=== PATIENT | female | born 1985 | race Caucasian/White ===

== ENCOUNTER 2017-09-28 14:02 | Emergency (ER) | payer MEDICAID, SELFPAY ==
[2017-09-28 14:02] VITALS: BP 159/41; PULSE 84; RESP 16; TEMP 36.9; O2SAT 99; BMI 17.2
--- NOTE | 2017-09-28 14:53 | ED.VISSUMM ---
- ER Visit Summary Date of Service: 09/28/17 Chief Complaint: Cough History of Present Illness: The patient is a 32 F no significant past medical history. Patient states she has had a cough nonproductive for the last 4 months. Denies any fever. No weight loss. She does smoke less than half pack cigarettes a day. Denies any hemoptysis. Physical Examination: Well-appearing young female. Vital signs are stable afebrile. Pulse ox 99% on room air no signs of hypoxia. HEENT exam unremarkable. Neck nontender no lymphadenopathy. Lungs dry cough but no rales rhonchi or wheezing. Equal and symmetrical. Heart regular rate and rhythm no murmur. Chest wall nontender. No ecchymosis or bruising. No subcu air. Abdomen is soft and nontender. Moving all 4 extremities. Neurologically awake alert with no focal motor deficits. Test Results: Chest x-ray changes no acute process. No infiltrate. Changes consistent with smoking history. Emergency Department Course and Treatment: Discharge to home. [id number] cough syrup. Treatment Plan: Smoking. If coughing continues consider testing for pertussis. Disposition: Discharge Impression: Chronic cough Tobacco abuse This note was generated with [employer] dictation software. It may contain incorrect words, spelling, and punctuation that were not noted in review of the chart prior to signing ED Disposition - Plan for ED Patient: Chief Complaint: Cough Referrals: Care Physician,No Primary [Primary Care Provider] -
[2017-09-28 14:58] VITALS: O2SAT 97
--- NOTE | 2017-09-28 15:00 | RAD_ITS ---
STUDY: X-RAY CHEST REASON FOR EXAM: Female, 32 years old. One-month history of cough. TECHNIQUE: PA and lateral views of the chest. COMPARISON: Comparison is made with prior study dated July 22, 2016. FINDINGS: Hyperinflation. Scattered calcified granulomas. No acute abnormality is seen. There is no demonstrated pleural abnormality. Normal size heart. Normal mediastinum and yefri. Normal visualized pulmonary arteries. Normal visualized aortic arch and descending thoracic aorta. Normal visualized thoracic spine. Normal visualized ribs, clavicles, and shoulders. There is no demonstrated abnormality of the visualized soft tissue structures of the upper abdomen. RAD/Chest PA and Lateral IMPRESSION: Hyperinflation. Electronically Signed: Gavin Osullivan MD at 15:16 EST Tel [phone], Service support ,
--- NOTE | 2017-09-28 15:12 | ED.DEP ---
ED Disposition - Plan for ED Patient: Disposition: Home or Assisted Living Chief Complaint: Cough Instructions: ED Cough Chronic Cause Unkn Referrals: Amos Collado MD [STAFF PHYSICIAN] - 1 Week if not improving Additional Instructions: Stop smoking Follow-up with the primary care physician. Over the counter cough syrup.
[2017-09-28 15:29] VITALS: PULSE 85; RESP 16; O2SAT 97
== END 2017-09-28 15:29 | disposition home or self-care (01) ==
PROVIDERS: Emergency Provider Emergency Medicine
DX: R05 Cough (principal); Z72.0 Tobacco use
CPT/HCPCS: 71046; 99282

== ENCOUNTER → 2017-09-29 13:22 | Outpatient (CLI) | payer MEDICAID, SELFPAY ==
[2017-10-07 13:55] LABS: HPV APTIMA, High Risk Negative
== END ==
PROVIDERS: Visit Provider Obstetrics & Gynecology
DX: Z12.4 Encounter for screening for malignant neoplasm of cervix (principal)
CPT/HCPCS: 88175; G0145

== ENCOUNTER 2018-03-03 03:31 | Emergency (ER) | payer MEDICAID, SELFPAY ==
[2018-03-03 03:32] VITALS: BP 108/86; PULSE 84; RESP 18; TEMP 36.8; O2SAT 98; BMI 15.5
[2018-03-03] MEDS: morphine 8 MG/ML Syringe IM (03:59)
--- NOTE | 2018-03-03 04:10 | RAD_ITS ---
STUDY: X-RAY - RIGHT HAND REASON FOR EXAM: Female, 33 years old. Injury TECHNIQUE: 3 view(s) of the hand. COMPARISON: None. FINDINGS: Normal radiocarpal articulation. Normal distal radioulnar joint. Normal visualized carpal bones. Normal carpal articulations Normal carpometacarpal articulation of the thumb. Normal second through fifth carpometacarpal joints. Normal metacarpi. Normal metacarpophalangeal joint of the thumb. Normal interphalangeal joint of the thumb. Normal proximal and distal phalanges of the thumb. Normal metacarpophalangeal joints of the second through fifth fingers. Normal proximal and distal interphalangeal joints of the second through fifth fingers. Normal phalanges of the second through fifth fingers. The soft tissue structures are unremarkable. RAD/Hand Min 3 Views IMPRESSION: Normal x-ray examination of the hand. Electronically Signed: Danny Rodriguez MD at 4:31 EDT Tel , Service support ,
[2018-03-03 04:44] VITALS: RESP 18
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
== END 2018-03-03 05:26 | disposition home or self-care (01) ==
PROVIDERS: Emergency Provider Emergency Medicine
DX: S60.221A Contusion of right hand, initial encounter (principal); W22.01XA Walked into wall, initial encounter; Y93.9 Activity, unspecified; Y92.89 Other specified places as the place of occurrence of the external cause; Y99.9 Unspecified external cause status; J45.909 Unspecified asthma, uncomplicated; F17.210 Nicotine dependence, cigarettes, uncomplicated
CPT/HCPCS: 73130; 96372; 99283

== ENCOUNTER 2019-05-14 01:24 | Emergency (ER) | payer BC, SELFPAY ==
[2019-05-14 01:24] VITALS: BMI 17.2
[2019-05-14 01:28] VITALS: BP 124/94; PULSE 94; RESP 16; TEMP 36.9; O2SAT 97; BMI 16.2
--- NOTE | 2019-05-14 02:02 | ED.VIS.GEN ---
History of Present Illness Chief Complaint: Back Informant: Patient Current Severity: Severe Narrative: Patient presents with severe back pain that started about 7 hours ago. She has had chronic back pain but she bent down at work and then developed a sharp pain in her lower back. She does have some radiation to her right leg. She has no bowel or bladder compromise. She denies any abdominal pain. No urinary retention. She denies any weakness or paresthesias. Past Medical History - Allergies and Home Meds Allergies/Adverse Reactions: Allergies Penicillins Allergy (Verified 03/03/18 03:36) Other Primary Care Physician: Care Physician,No Primary [Primary Care Provider] - Past Medical History: - Smoking Status: Current every day smoker Review of Systems All systems negative except as indicated General: Denies: Fever Cardiovascular: Denies: Chest pain Respiratory: Denies: Dyspnea Gastrointestinal: Denies: Abdominal pain Musculoskeletal: Reports: Back pain. Denies: Neck pain Skin: Denies: Wounds Neurological: Denies: Weakness, Parasthesia Physical Exam Vital Signs/Narrative: Vital Signs Temp Pulse Resp BP Pulse Ox 05/14/19 01:28 98.4 F 94 16 124/94 H 97 General: Acute Distress ENT: Moist mucous membranes Cardiovascular: Regular rate, Regular rhythm Respiratory: No distress, CTA bilaterally Abdomen: Soft, Nontender Back: - - There is tenderness over the spinal and paraspinal regions of her lower back. Extremities: No edema, Tenderness Neurological: - - Patient has normal strength and sensation of both lower extremities. She has a positive straight leg test on the right. She has normal plantarflexion and dorsiflexion of both feet and great toes bilaterally. She has equal bilateral patellar and Achilles reflexes. Diagnostic/Tx/Re-eval - Medical Decision Making Patient has sciatica. She received analgesia in the emergency department I will give her analgesia for home and referred to her PCP. Will give her time off work. If she has bowel bladder compromise weakness or sensory deficit she needs to return. ED Disposition - Plan for ED Patient: Disposition: Home or Assisted Living Prescriptions: Oxycodone HCl/Acetaminophen [Percocet 5/325] 1 tab PO Q6H PRN PRN 3 Days #12 tab PRN Reason: Pain Prescription Printed Referrals: Aníbal Torres MD [STAFF PHYSICIAN] - 3-5 Days
[2019-05-14] MEDS: Ondansetron ODT 4 MG Tablet PO (02:18)
[2019-05-14] MEDS: HYDROmorphone 1 MG/ML Syringe SC (02:18)
[2019-05-14 02:23] VITALS: BP 121/82; PULSE 94; O2SAT 98
== END 2019-05-14 02:46 | disposition home or self-care (01) ==
PROVIDERS: Emergency Provider Emergency Medicine
DX: M54.30 Sciatica, unspecified side (principal); F17.200 Nicotine dependence, unspecified, uncomplicated; Z88.0 Allergy status to penicillin; G89.29 Other chronic pain; M54.9 Dorsalgia, unspecified
CPT/HCPCS: 99283

== ENCOUNTER 2019-07-31 18:54 | Emergency (ER) | payer BC, SELFPAY ==
[2019-07-31 18:55] VITALS: BP 113/86; PULSE 98; RESP 15; TEMP 36.6; O2SAT 100; BMI 18.0
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
[2019-07-31] MEDS: Ibuprofen 200 MG Tablet 400 MG PO (20:19)
[2019-07-31] MEDS: HYDROcodone Bitartrate/Apap 5/325 Tablet PO (20:19)
== END 2019-07-31 21:09 | disposition home or self-care (01) ==
PROVIDERS: Emergency Provider Emergency Medicine
DX: S50.11XA Contusion of right forearm, initial encounter (principal); Y04.2XXA Assault by strike against or bumped into by another person, initial encounter; Y93.9 Activity, unspecified; Y92.9 Unspecified place or not applicable; Y99.9 Unspecified external cause status; J45.909 Unspecified asthma, uncomplicated; F17.200 Nicotine dependence, unspecified, uncomplicated; Z88.0 Allergy status to penicillin
CPT/HCPCS: 73060; 73090; 73130; 99283

== ENCOUNTER 2019-09-09 16:19 | Emergency (ER) | payer BC, SELFPAY ==
[2019-09-09 16:20] VITALS: BP 110/82; PULSE 113; RESP 16; TEMP 36; O2SAT 99; BMI 16.8
--- NOTE | 2019-09-09 16:34 | ED.VISSUMM ---
- ER Visit Summary Date of Service: 09/09/19 Chief Complaint: Quadrant abdominal pain. History of Present Illness: The patient is a 34 F past medical history depression and prior ovarian cyst. Prior cholecystectomy. Still has her gallbladder. Patient states for the last 4 days she is developed right lower quadrant abdominal pain. Associated nausea vomiting and diarrhea. No fever. No dysuria. She just started having spotting vaginal bleeding 2 days ago. Says that either means her period is coming on or she sometimes spots a week before. Denies any vaginal discharge. She still has her appendix. States she has had pain like this before but they never come up with a specific diagnosis. Physical Examination: Young female no acute distress vital signs are stable and afebrile. H EENT exam normal. Neck nontender. Lungs clear to auscultation bilaterally. Heart regular rhythm no murmur. Abdomen is soft. Nondistended. Normal bowel sounds. No peritoneal signs. She does have mild tenderness in the right lower quadrant only. There is no hernia or mass. There is no right upper quadrant tenderness. There is no Kirby sign. There is no signs of obstruction. She is moving all 4 extremities. There is no edema. Back is nontender. There is no CVA tenderness. Neurologically she is awake and alert. Test Results: White count 7. Hemoglobin 15. Electrolytes unremarkable normal creatinine gap. UA normal. Serum test negative. CT abdomen pelvis done without contrast initially ordered with IV contrast but the IV they were able obtain was too small. The CAT scan shows a normal appendix a right adnexal cyst of 3.2 cm. And otherwise unremarkable. This is consistent with her pain and is consistent with ovarian cyst pain. Emergency Department Course and Treatment: Patient treated with IV morphine, fluids and Zofran. Labs and a CAT scan of her abdomen pelvis to be obtained with IV contrast. Treatment Plan: Repeat exam she is doing well at 1907 p.m. Abdomen is benign. She and I discussed all test results. She will be discharged home. Tylenol and Motrin for pain. 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 Disposition: Discharge Impression: Acute abdominal pain and pelvic pain secondary to a 3.2 cm right ovarian cyst This note was generated with [employer] software. It may contain incorrect words, spelling, and punctuation that were not noted in review of the chart prior to signing ED Disposition - Plan for ED Patient: Referrals: Care Physician,No Primary [Primary Care Provider] -
[2019-09-09] MEDS: Ondansetron 4 MG/2 ML Vial IV (17:04)
[2019-09-09] MEDS: 0.9% Normal Saline 1,000 ML 1000 ML IV (17:04)
[2019-09-09] MEDS: Morphine 4 MG/ML Syringe IV (17:04)
[2019-09-09 17:16] LABS: Absolute Lymphocyte Count 1.47 X10^3/uL (0.83-4.51); Absolute Neutrophil Count 4.9 X10^3/uL (2.0-7.7); Basophil# 0.05 X10^3/uL; Basophil% 0.7 % (0-1); Eosinophil# 0.26 X10^3/uL; Eosinophils% 3.7 % (0-5); Hematocrit 45.3 % (37-47); Hemoglobin 15.8 g/dL (12.0-15.0); Lymphocyte # 1.47 X10^3/ul (4.0); Lymphocyte % 20.8 % (19-41); Mean Corp Hgb Conc 34.9 g/dL (32-36); Mean Corpuscular Hgb 31.6 pg (27.0-32.0); Mean Corpuscular Volume 90.6 fL (81-99); Mean Platelet Vol. 9.3 fl (6.2-12.0); Monocyte# 0.36 X10^3/uL; Monocyte% 5.1 % (0-10); NRBC Flagged by Analyzer 0 % (0-5); Neutrophil # 4.91 X10^3/uL (2.7-7.7); Neutrophil % 69.6 % (47-70); Platelet Count 285 K/mm3 (150-450); RBC Distribution Width SD 39.3 fl (35.1-43.9); White Blood Count 7.1 K/mm3 (4.4-11.0)
[2019-09-09 17:23] LABS: Bacteria 0 SEEN /hpf (None Seen); Mucous, Urine 0 SEEN /hpf (<or=2+); Red Blood Cells-Urine 0 SEEN /hpf (0-5); White Blood Cells 0 SEEN /hpf (0-5)
[2019-09-09 17:29] LABS: Color, Urine Yellow (Yellow); Glucose, Dipstick Normal (Normal); Ketone-Dipstick Negative (Negative); Leukocyte Esterase-Dipstick Negative /ul (Negative); Nitrite-Dipstick Negative (Negative); Occult Blood-Urine Negative /ul (Negative); Protein-Dipstick Negative (Negative); Urine Bilirubin Dipstick Negative (Negative); Urine Clarity Sl. Cloudy (Clear); Urine Urobilinogen Normal (Normal)
[2019-09-09 17:30] LABS: Internal QC Validated? YES +Cl - CLEAR BKGD; Pregnancy, Serum, hCG Quali. NEGATIVE Negative
--- NOTE | 2019-09-09 17:31 | CT_ITS ---
STUDY: CT ABDOMEN AND PELVIS WITHOUT CONTRAST REASON FOR EXAM: Female, 34 years old. N/V/D, IUD AND CHOLECYSTECTOMY RADIATION DOSAGE (If Supplied By Facility): CTDIvol = ( 6.04 ) mGy, DLP = ( 271.80 ) mGycm TECHNIQUE: Transaxial images were obtained from the dome of the diaphragm to the symphysis pubis without oral contrast, and without intravenous contrast. Sagittal and coronal images were reconstructed. Individualized dose optimization techniques were used for this CT. COMPARISON: None. FINDINGS: The visualized lung bases are unremarkable. The visualized portions of the heart are within normal limits. Normal liver. There are surgical clips in the gallbladder fossa consistent with a prior cholecystectomy. Normal spleen. Normal pancreas. Normal bilateral adrenal glands. Normal right kidney. Normal left kidney. Normal visualized stomach. Normal small intestine. Normal colon. The appendix is visualized and appears normal. Normal abdominal aorta. Normal inferior vena cava. Normal retroperitoneum. Normal urinary bladder. There is IUD in the uterus. There is 3.2 cm right adnexal cyst. There is no free fluid in the abdomen or pelvis. Normal abdominal wall. Normal osseous structures. CT/Abdomen/Pelvis without Cont IMPRESSION: Right adnexal cyst. No obstruction. No stones or hydronephrosis. Electronically Signed: Mynor Correa MD at 18:00 EST , Service support ,
[2019-09-09 17:35] LABS: Anion Gap 3 (5-15); BUN 11 mg/dL (7-18); BUN/Creat Ratio 16.2 RATIO (10-20); Chloride 110 mmol/L (98-107); Creatinine, Serum 0.68 mg/dL (0.55-1.02); EST Glomerular Filtration Rate 104 mL/min (>60); Est Glom Filt Rate - Afr Amer 126 mL/min (>60); Estimated Creatinine Clearance 81.03 ml/min; Glucose 98 mg/dL (74-106); Potassium 3.9 mmol/L (3.5-5.1); Sodium Level 141 mmol/L (136-145)
[2019-09-09 17:50] LABS: Squamous Epithelial Cells - UA 5-10 SEEN /hpf (5-10)
[2019-09-09 18:47] VITALS: BP 94/61; PULSE 69; RESP 16; O2SAT 97
--- NOTE | 2019-09-09 19:08 | ED.DEP ---
ED Disposition - Plan for ED Patient: Disposition: Home or Assisted Living Referrals: Karson Olivo MD [STAFF PHYSICIAN] - 10-14 Days if not better Additional Instructions: Pain secondary to a 3.2 mm right ovarian cyst. 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 Tylenol and Motrin for pain.
[2019-09-09 19:16] VITALS: BP 104/61; PULSE 74; RESP 18; O2SAT 99
== END 2019-09-09 19:17 | disposition home or self-care (01) ==
PROVIDERS: Emergency Provider Emergency Medicine
DX: N83.201 Unspecified ovarian cyst, right side (principal); N93.9 Abnormal uterine and vaginal bleeding, unspecified; F32.9 Major depressive disorder, single episode, unspecified; Z90.49 Acquired absence of other specified parts of digestive tract; Z72.0 Tobacco use
CPT/HCPCS: 36415; 74176; 80048; 81001; 84703; 85025; 96361; 96374; 96375; 99285; J7030; A4216; J2405

== ENCOUNTER 2019-11-06 17:53 | Emergency (ER) | payer BC, SELFPAY ==
[2019-11-06 17:54] VITALS: BP 114/75; PULSE 94; RESP 20; TEMP 36.6; O2SAT 97; BMI 17.5
--- NOTE | 2019-11-06 18:22 | ED.DCSUM_ITS ---
- ER Visit Summary Date of Service: 11/06/19 Chief Complaint: Cough and shortness of breath History of Present Illness: The patient is a 34 F who presents with cough and shortness of breath for 3 days. Patient is a smoker. Patient states this is gradually gotten worse over the past 3 days. Patient states nothing makes it better or worse. Patient admits to a sore throat. Patient admits to a cough but denies any sputum production. Patient admits to subjective chills. Patient states she has pain in her right upper chest that is sharp at times. Patient admits to headache and generalized weakness. Patient admits to some nausea but denies any vomiting. Physical Examination: Vital signs are stable. Patient is afebrile. Patient is in no acute distress. Oral mucosa is pink and moist. Oropharynx shows some postnasal drainage. Neck is supple. Trachea is midline. There is no JVD or lymphadenopathy. Heart was regular rate and rhythm. Lungs are clear and equal bilaterally. Abdomen is soft. Bowel sounds are normal. There is no tenderness. Cranial nerves II through XII are intact. There are no focal motor or sensory deficits noted. Extremities are intact. There is no calf tenderness or edema. Test Results: PA and lateral chest x-ray shows hyperinflation but no acute cardiopulmonary process. This was interpreted by the radiologist and myself. Flu swab was negative. Rapid strep was negative. Emergency Department Course and Treatment: Patient was feeling better on reevaluation. Patient was instructed to follow-up with her primary care physician in 5 to 7 days. Patient was given a note for work. Patient was instructed to quarantine herself for the next 2 weeks. Patient understood and was agreeable with the plan. All questions were answered. Disposition: Discharge home Impression: Viral upper respiratory infection This note was generated with [employer] dictation software. It may contain incorrect words, spelling, and punctuation that were not noted in review of the chart prior to signing ED Disposition - Plan for ED Patient: Disposition: Home or Assisted Living Diagnosis: Viral upper respiratory tract infection with cough Instructions: URI, Viral, No Abx (Adult) Referrals: Care Physician,No Primary [Primary Care Provider] - 5-7 Days
[2019-11-06] MEDS: Acetaminophen 500 MG Tablet 1000 MG PO (18:30)
--- NOTE | 2019-11-06 18:40 | RAD_ITS ---
STUDY: X-RAY CHEST REASON FOR EXAM: Female, 34 years old. Shortness of breath, dizziness TECHNIQUE: PA and lateral views of the chest. COMPARISON: 09/28/2017. FINDINGS: Cardiac silhouette unremarkable. Pulmonary vascularity unremarkable. Aorta unremarkable. No focal airspace opacities. No pleural effusions. Lungs are mildly hyperinflated. Upper abdomen unremarkable. Osseous structures intact. No pneumothorax. RAD/Chest PA and Lateral IMPRESSION: Hyperinflated lungs. No acute cardiopulmonary findings Electronically Signed: Miguel Noguera, at 19:20 EDT Tel , Service support ,
[2019-11-06 18:55] VITALS: BP 98/72; PULSE 62; RESP 20; TEMP 37.1; O2SAT 98
[2019-11-06 20:00] VITALS: BP 91/76; PULSE 64; RESP 18; TEMP 37.1; O2SAT 98
[2019-11-06 21:08] VITALS: BP 135/60; PULSE 83; RESP 17; TEMP 37; O2SAT 95
== END 2019-11-06 21:10 | disposition home or self-care (01) ==
PROVIDERS: Emergency Provider Emergency Medicine
DX: J06.9 Acute upper respiratory infection, unspecified (principal); F17.210 Nicotine dependence, cigarettes, uncomplicated; F32.9 Major depressive disorder, single episode, unspecified; F41.9 Anxiety disorder, unspecified
CPT/HCPCS: 71046; 87804; 87880; 99282

== ENCOUNTER 2020-01-22 15:09 | Emergency (ER) | payer BC, SELFPAY ==
[2020-01-22 15:10] VITALS: BP 134/68; PULSE 75; RESP 16; TEMP 36.3; O2SAT 97; BMI 17.2
[2020-01-22 15:21] VITALS: BP 108/72; PULSE 104; RESP 20; TEMP 36.3; O2SAT 96
[2020-01-22 15:25] VITALS: O2SAT 97
[2020-01-22 15:44] VITALS: BP 105/76; PULSE 87; RESP 16; TEMP 36.6; O2SAT 98
--- NOTE | 2020-01-22 16:27 | ED.DCSUM_ITS ---
- ER Visit Summary Date of Service: 01/22/20 Chief Complaint: Cough] History of Present Illness: The patient is a 34 F presents to the emergency department with complaint of a cough that started about a week to week and a half ago. Patient states that it is a dry cough. She has had another coworker at work has had a cough and was tested for COVID-19 but was negative. Patient has no known exposures to individuals with COVID-19. Patient has not had any fevers. She denies sore throat or body aches. She denies headache. She feels short of breath at times with ambulation. Has history of asthma. [] Physical Examination: [HEENT-PERRLA, EOMI. Cranial nerves II through XII al ssly intact. TMs clear. Mucous membranes moist. No adenopathy. Cardiovascular-regular rate and rhythm without murmur or ectopy Lungs-aeration bilaterally with some faint expiratory wheezes. No accessory muscle use or retractions. Abdomen-normoactive bowel sounds, soft, nontender, no rebound or rigidity, no peritoneal signs. Extremities-intact ?4, normal range of motion, normal pulses, atraumatic] Test Results: [CBC with differential was normal. Chemistries unremarkable. Chest x-ray was normal. COVID-19 test was negative.] Emergency Department Course and Treatment: [Patient was given albuterol MDI in the department as well as given prednisone 40 mg p.o.] Treatment Plan: [Patient will be treated with albuterol as well as prednisone. Patient will be referred to primary care physician for follow-up in 3 to 5 days. Patient advised to return if increasing shortness of breath or condition shoul d worsen anyway.] Disposition: [Discharged home in stable condition] Impression: [Asthmatic bronchitis/viral URI] This note was generated with [employer] software. It may contain incorrect words, spelling, and punctuation that were not noted in review of the chart prior to signing ED Disposition - Plan for ED Patient: Referrals: Care Physician,No Primary [Primary Care Provider] -
[2020-01-22 16:44] VITALS: BP 100/66; PULSE 73; RESP 19; TEMP 36.6; O2SAT 98
[2020-01-22] MEDS: 0.9% Normal Saline 1,000 ML 1000 ML IV (16:52)
--- NOTE | 2020-01-22 16:55 | RAD_ITS ---
STUDY: X-RAY CHEST REASON FOR EXAM: Female, 34 years old. NONPRODUCTIVE WET COUGH SINCE THE END OF November,. TECHNIQUE: Single AP portable view of the chest. COMPARISON: Previous study of 11/06/2019 FINDINGS: electronic device monitor leads are present. The lungs are clear and expanded. There is no demonstrated pleural abnormality. Normal size heart. Normal mediastinum and yefri. Normal visualized pulmonary arteries. Normal visualized aortic arch and descending thoracic aorta. Normal visualized thoracic spine. Normal visualized ribs, clavicles, and shoulders. There is no demonstrated abnormality of the visualized soft tissue structures of the upper abdomen. RAD/Chest 1 View (Portable) IMPRESSION: Normal x-ray examination of the chest. Electronically Signed: Adan John MD at 17:57 EDT , Service support ,
[2020-01-22 16:58] LABS: Absolute Lymphocyte Count 2.26 X10^3/uL (0.83-4.51); Absolute Neutrophil Count 4.2 X10^3/uL (2.0-7.7); Basophil# 0.04 X10^3/uL; Basophil% 0.5 % (0-1); Eosinophil# 0.42 X10^3/uL; Eosinophils% 5.8 % (0-5); Hematocrit 43.5 % (37-47); Hemoglobin 14.9 g/dL (12.0-15.0); Lymphocyte # 2.26 X10^3/ul (4.0); Mean Corp Hgb Conc 34.3 g/dL (32-36); Mean Corpuscular Hgb 30.5 pg (27.0-32.0); Mean Corpuscular Volume 89.1 fL (81-99); Mean Platelet Vol. 10.1 fl (6.2-12.0); Monocyte# 0.42 X10^3/uL; Monocyte% 5.8 % (0-10); NRBC Flagged by Analyzer 0 % (0-5); Neutrophil # 4.15 X10^3/uL (2.7-7.7); Neutrophil % 56.8 % (47-70); Platelet Count 297 K/mm3 (150-450); RBC Distribution Width CV 11.5 % (11.6-14.6); RBC Distribution Width SD 36.4 fl (35.1-43.9); Red Blood Count 4.88 M/mm3 (4.2-5.4); White Blood Count 7.3 K/mm3 (4.4-11.0)
[2020-01-22 17:00] VITALS: BP 98/57; PULSE 91; RESP 20; TEMP 36.4; O2SAT 100
[2020-01-22 17:09] LABS: Anion Gap 6 (5-15); BUN 14 mg/dL (7-18); BUN/Creat Ratio 16.8 RATIO (10-20); Calcium,Total 8.9 mg/dL (8.5-10.1); Chloride 105 mmol/L (98-107); Creatinine, Serum 0.83 mg/dL (0.55-1.02); EST Glomerular Filtration Rate 83 mL/min (>60); Est Glom Filt Rate - Afr Amer 100 mL/min (>60); Estimated Creatinine Clearance 67.74 ml/min; Glucose 96 mg/dL (74-106); Potassium 3.8 mmol/L (3.5-5.1); Sodium Level 140 mmol/L (136-145)
[2020-01-22] MEDS: Ketorolac 30 MG/ML Syringe IV (17:16)
[2020-01-22 17:24] LABS: Lactic Acid 1.6 mmol/L (0.4-1.9)
[2020-01-22 17:52] LABS: Probe Check PASS; Specimen Processing Control PASS
--- NOTE | 2020-01-22 18:02 | DCINST.ED_ITS ---
ED Disposition - Plan for ED Patient: Instructions: ED Bronchitis Asthmatic Prescriptions: Prednisone [Deltasone] 20 mg PO BID #10 tab Transmission Status: Pending to [id number] Referrals: Care Physician,No Primary [Primary Care Provider] - Maya Payton DO [STAFF PHYSICIAN] - 3-5 Days
[2020-01-22] MEDS: predniSONE 20 MG Tablet 40 MG PO (18:23)
[2020-01-22] MEDS: Gentamicin Sulfate 1 OPTH.BTL 2 DRP RIGHT EYE (18:23)
== END 2020-01-22 18:24 | disposition home or self-care (01) ==
LOC: ED 16:01
PROVIDERS: Emergency Provider Emergency Medicine
DX: J45.909 Unspecified asthma, uncomplicated (principal); J06.9 Acute upper respiratory infection, unspecified; Z72.0 Tobacco use
CPT/HCPCS: 71045; 80048; 83605; 85025; 87040; 87635; 94640; 96361; 96374; 99282; G2023; J7030; A4216; U0003

== ENCOUNTER 2020-08-29 17:08 | Emergency (ER) | payer SELFPAY ==
[2020-08-29 17:08] VITALS: BP 97/44; PULSE 117; RESP 18; TEMP 35.7; BMI 16.5
[2020-08-29 17:10] VITALS: BP 112/78; PULSE 76; RESP 15; TEMP 37.2; O2SAT 100
--- NOTE | 2020-08-29 17:55 | CT_ITS ---
STUDY: CT ABDOMEN AND PELVIS WITH CONTRAST REASON FOR EXAM: Female, 35 years old. Lower abdominal pain RADIATION DOSAGE (If Supplied By Facility): CTDIvol = ( 4 ) mGy, DLP = ( 208 ) mGycm TECHNIQUE: Transaxial images were obtained from the dome of the diaphragm to the symphysis pubis with oral contrast. 75 ml of ISOVUE-370 contrast was administered. Sagittal and coronal images were reconstructed. Individualized dose optimization techniques were used for this CT. COMPARISON: 09/09/19 FINDINGS: The visualized lung bases are clear. The visualized portions of the heart and pericardium are within normal limits. The patient is status post cholecystectomy. The liver is within normal limits. There are no suspicious hepatic lesions. The spleen is normal in size. The pancreas is within normal limits. The adrenal glands are within normal limits. There are no renal or ureteral stones. There is no hydronephrosis. There are no focal renal lesions. Normal visualized stomach. There is no bowel obstruction or inflammation. The appendix is visualized and appears normal. There is an intrauterine device noted. The aorta is normal in caliber. There is no abdominal or pelvic free air, free fluid, fluid collection or lymphadenopathy. There are no destructive osseous lesions. CT/Abdomen/Pelvis WITH Contrast IMPRESSION: No acute abdominal or pelvic pathology. Electronically Signed: Mohit Carbajal, at 20:09 EST Tel , Service support ,
[2020-08-29] MEDS: Morphine 4 MG/ML Syringe IV (18:06)
[2020-08-29] MEDS: Ondansetron 4 MG/2 ML Vial IV (18:06)
[2020-08-29] MEDS: 0.9% Normal Saline 1,000 ML 1000 ML IV (18:08)
[2020-08-29 18:10] VITALS: BP 124/47; PULSE 79; RESP 18; TEMP 37.1; O2SAT 98
[2020-08-29 18:10] LABS: Absolute Lymphocyte Count 2.15 X10^3/uL (0.83-4.51); Absolute Neutrophil Count 4.6 X10^3/uL (2.0-7.7); Basophil# 0.04 X10^3/uL; Basophil% 0.5 % (0-1); Eosinophil# 0.19 X10^3/uL; Eosinophils% 2.6 % (0-5); Hematocrit 45.8 % (37-47); Hemoglobin 15.9 g/dL (12.0-15.0); Lymphocyte # 2.15 X10^3/ul (4.0); Lymphocyte % 29.5 % (19-41); Mean Corp Hgb Conc 34.7 g/dL (32-36); Mean Corpuscular Hgb 31.4 pg (27.0-32.0); Mean Corpuscular Volume 90.3 fL (81-99); Mean Platelet Vol. 9.9 fl (6.2-12.0); Monocyte# 0.32 X10^3/uL; Monocyte% 4.4 % (0-10); NRBC Flagged by Analyzer 0 % (0-5); Neutrophil # 4.57 X10^3/uL (2.7-7.7); Neutrophil % 62.9 % (47-70); Platelet Count 320 K/mm3 (150-450); RBC Distribution Width CV 11.9 % (11.6-14.6); RBC Distribution Width SD 38.6 fl (35.1-43.9); Red Blood Count 5.07 M/mm3 (4.2-5.4); White Blood Count 7.3 K/mm3 (4.4-11.0)
[2020-08-29 18:16] LABS: Bacteria 0 SEEN /hpf (None Seen)
[2020-08-29 18:16] LABS: Internal QC Validated? YES +Cl - CLEAR BKGD; Pregnancy, Serum, hCG Quali. NEGATIVE Negative
[2020-08-29 18:19] LABS: Color, Urine Yellow (Yellow); Glucose, Dipstick Normal (Normal); Ketone-Dipstick Negative (Negative); Leukocyte Esterase-Dipstick 500 /ul (Negative); Nitrite-Dipstick Negative (Negative); Occult Blood-Urine 10 /ul (Negative); Protein-Dipstick Negative (Negative); Specific Gravity, Urine 1.015 (1.002-1.030); Urine Bilirubin Dipstick Negative (Negative); Urine Clarity Cloudy (Clear); Urine Urobilinogen Normal (Normal); Urine pH 6.5 (5.0 - 8.0)
[2020-08-29 18:23] LABS: ALB/GLOB Ratio 1.1 RATIO (0.9-2.4); AST(SGOT) 22 U/L (15-37); Alanine Aminotransfer ALT/SGPT 19 U/L (13-56); Albumin, Serum 3.8 g/dL (3.2-5.0); Alkaline Phosphatase 85 U/L (45-117); Anion Gap 7 (5-15); BUN 14 mg/dL (7-18); BUN/Creat Ratio 13.5 RATIO (10-20); Calcium,Total 8.4 mg/dL (8.5-10.1); Chloride 106 mmol/L (98-107); Creatinine, Serum 1.04 mg/dL (0.55-1.02); EST Glomerular Filtration Rate 64 mL/min (>60); Est Glom Filt Rate - Afr Amer 77 mL/min (>60); Estimated Creatinine Clearance 51.59 ml/min; Globulin 3.4 g/dL (2.2-4.2); Glucose 99 mg/dL (74-106); Lipase 117 U/L (73-393); Potassium 3.8 mmol/L (3.5-5.1); Protein, Total 7.2 g/dL (6.4-8.2); Sodium Level 140 mmol/L (136-145)
[2020-08-29 18:33] LABS: Amorphous Sediment 1+ URATE; Mucous, Urine 1+ /hpf (<or=2+); Red Blood Cells-Urine 0-5 SEEN /hpf (0-5); Squamous Epithelial Cells - UA 0-5 SEEN /hpf (5-10); White Blood Cells 50-100 SEEN /hpf (0-5)
[2020-08-29 18:44] LABS: Lactic Acid 1.3 mmol/L (0.4-1.9)
--- NOTE | 2020-08-29 18:51 | ED.DCSUM_ITS ---
- ER Visit Summary Date of Service: 08/29/20 Chief Complaint: Abdominal pain History of Present Illness: The patient is a 35 F with no primary care physician. She reports she has abdominal pain that began 4 days ago. Is a dull, aching pain that is 3-10 when she is at rest and 10 of 10 with movement. Reports she has been nauseated and vomited small amount without blood. She has had diarrhea that began yesterday. States she has had this approximately 6 times. No blood in her stools or black tarry stools. No dysuria or frequency. She has a Mirena. She denies any vaginal bleeding or discharge. Patient reports she has been lightheaded. This increases when she stands. She has not passed out. She reports she has a chronic cough that is unchanged. Is productive of clear sputum. She does wear a mask and denies sick contacts. Physical Examination: Vitals: 96.2, 9744, 117, 18, 97% room air which not hypoxic. General: Well-nourished and well-developed. Head: Normocephalic atraumatic. Neck: Supple, no lymphadenopathy. No JVD. Nontender. Cardiovascular: Regular rate and rhythm. No murmurs. Respiratory: No respiratory distress. Clear to auscultation bilaterally. Abdominal: Soft, mild diffuse tenderness palpation moderate right lower quadrant tenderness to palpation, nondistended, normal bowel sounds. No guarding, rebound, or peritoneal signs. Back: Nontender. Extremities: Nontender, no edema. Skin: Normal color, no rash. Neurologic: Alert and oriented ?3. Cranial nerves II through XII are intact. Normal strength and sensation. Psych: Normal affect. Test Results: CBC shows a hemoglobin of 15.9. Chem-7 shows a calcium of 8.4 and creatinine 1.04. LFTs are normal. Lipase normal. UA shows leukocytes and 50- 100 white blood cells with no bacteria. test is negative. Clinical Impression(s) from Imaging Studies Abdomen/Pelvis CT 08/29/20 17:55 IMPRESSION: No acute abdominal or pelvic pathology. Electronically Signed: Mohit Carbajal, at 20:09 EST Tel , Service support , Chest X-Ray 08/29/20 19:30 IMPRESSION: No acute thoracic pathology. Electronically Signed: Mohit Crabajal, at 20:01 EST Tel , Service support , Emergency Department Course and Treatment: Patient had an IV placed. She was given a liter normal saline. She was given morphine and Zofran IV. She is resting more comfortably. Treatment Plan: I discussed the patient's urinalysis. She would like to be placed on an antibiotic while the culture is pending. She is given a dose of Cipro here. She will be discharged with Zofran, Bentyl, naproxen, and Cipro for 3 days. Instructed to follow-up with the [facility] in 1 to 2 days if not improving. Return to the emergency department for any worsening symptoms. Disposition: To home in improved and stable condition. Impression: 1. Abdominal pain, uncertain cause. This note was generated with [email or web address] dictation software. It may contain incorrect words, spelling, and punctuation that were not noted in review of the chart prior to signing ED Disposition - Plan for ED Patient: Instructions: ED Abdominal Pain Unkn Cause Fem Prescriptions: Dicyclomine HCl [Bentyl] 20 mg PO TIDAC #20 capsule Ciprofloxacin [Cipro] 500 mg PO BID #6 tablet Naproxen [Naprosyn] 500 mg PO BID #14 tablet Ondansetron [Zofran Odt] 4 mg PO Q8H PRN PRN #10 tablet PRN Reason: Nausea Referrals: [facility] [NON-STAFF] - 1-2 Days if not improving
--- NOTE | 2020-08-29 19:30 | RAD_ITS ---
STUDY: X-RAY CHEST REASON FOR EXAM: Female, 35 years old. Pain. Diarrhea. TECHNIQUE: Frontal view of the chest COMPARISON: 01/22/20 FINDINGS: The lungs are clear. There are no pleural effusions. There is no pneumothorax. The heart is normal in size. The visualized osseous structures are within normal limits. RAD/Chest 1 View (Portable) IMPRESSION: No acute thoracic pathology. Electronically Signed: Mohit Carbajal, at 20:01 EST Tel , Service support ,
[2020-08-29 20:21] VITALS: BP 110/59; PULSE 79; RESP 18; TEMP 36.9; O2SAT 99
[2020-08-29] MEDS: Ciprofloxacin 500 MG Tablet PO (20:32)
== END 2020-08-29 20:33 | disposition home or self-care (01) ==
PROVIDERS: Emergency Provider Emergency Medicine
DX: R10.9 Unspecified abdominal pain (principal); R05 Cough; R42 Dizziness and giddiness; R11.2 Nausea with vomiting, unspecified; R19.7 Diarrhea, unspecified; J02.9 Acute pharyngitis, unspecified; J45.909 Unspecified asthma, uncomplicated; Z90.49 Acquired absence of other specified parts of digestive tract; F17.210 Nicotine dependence, cigarettes, uncomplicated
CPT/HCPCS: 71045; 74177; 80053; 81001; 83605; 83690; 84703; 85025; 87077; 87086; 87088; 87426; 96361; 96374; 96375; 99284; J7030; Q9967; A4216; J2405

== ENCOUNTER 2020-11-15 08:47 | Emergency (ER) | payer SELFPAY ==
[2020-11-15 08:49] VITALS: BMI 17.2
[2020-11-15 08:53] VITALS: PULSE 118; RESP 22; TEMP 36.6; O2SAT 97; BMI 17.2
[2020-11-15 09:00] VITALS: PULSE 112; RESP 23; O2SAT 100
--- NOTE | 2020-11-15 09:08 | EKG12_ITS ---
Test Reason : NEURO SX Blood Pressure : / mmHG Vent. Rate : 091 BPM Atrial Rate : 091 BPM P-R Int : 146 ms QRS Dur : 082 ms QT Int : 362 ms P-R-T Axes : 078 086 039 degrees QTc Int : 445 ms Normal sinus rhythm Nonspecific T wave abnormality Abnormal ECG Confirmed by YAJAIRA KWOK, JASMIN ([id number]), editor producer ANDREW AUGUSTIN ([id number]) on 11/18/2020 9:31:39 AM Referred By: Confirmed By:JASMIN GATES MD
--- NOTE | 2020-11-15 09:08 | CT_ITS ---
STUDY: CT BRAIN WITHOUT CONTRAST REASON FOR EXAM: Female, 35 years old. Headache and injury. Left facial droop and weakness. RADIATION DOSAGE (If Supplied By Facility): CTDIvol = ( 44.99 ) mGy, DLP = ( 762.36 ) mGycm TECHNIQUE: Transaxial CT imaging of the brain was performed without administration of intravenous contrast material. Individualized dose optimization techniques were used for this CT. COMPARISON: Comparison is made with prior examination dated 12/02/2015. FINDINGS: Normal soft tissue structures. Normal calvarium. Normal size ventricles and extra-axial spaces for the patient''s age. Normal white matter tracts of the cerebral hemispheres. Normal basal ganglia and thalami. Normal brainstem. Normal cerebellum. There is no intracranial hemorrhage. There are no findings of an acute ischemic infarction. Normal visualized paranasal sinuses. CT/Brain/Head without Contrast IMPRESSION: Normal unenhanced CT scan of the brain. Electronically Signed: Gavin Osullivan MD at 9:56 EDT , Service support ,
--- NOTE | 2020-11-15 09:09 | CT_ITS ---
STUDY: CT CERVICAL SPINE WITHOUT CONTRAST REASON FOR EXAM: Female, 35 years old. Injury. Syncopal episode. Left facial droop and weakness. RADIATION DOSAGE (If Supplied By Facility): CTDIvol = ( 11.96 ) mGy, DLP = ( 521.16 ) mGycm TECHNIQUE: High resolution transaxial imaging was performed without contrast material. Sagittal and coronal images were reconstructed. Individualized dose optimization techniques were used for this CT. COMPARISON: None FINDINGS: Normal craniovertebral junction. Normal anterior atlantoaxial articulation. Normal odontoid process. There is straightening of the normal cervical lordosis. Normal vertebral bodies and posterior osseous elements. C2-3: Normal endplates. Normal disc height and morphology. Normal central canal and intervertebral neuroforamina. C3-4: Normal endplates. Normal disc height and morphology. Normal central canal and intervertebral neuroforamina. C4-5: Facet joint osteoarthritis and hypertrophy on the left side causing mild to moderate degree of left neural foraminal stenosis. C5-6: Normal endplates. Normal disc height and morphology. Normal central canal and intervertebral neuroforamina. C6-7: Normal endplates. Normal disc height and morphology. Normal central canal and intervertebral neuroforamina. C7-T1: Normal endplates. Normal disc height and morphology. Normal central canal and intervertebral neuroforamina. Normal visualized soft tissue structures. CT/Spine Cervical without Contras IMPRESSION: Facet joint osteoarthritis and hypertrophy of the left facet joint at the C4-C5 level causing mild to moderate degree of left neural foraminal stenosis. Electronically Signed: Gavin Osullivan MD at 9:55 EDT , Service support ,
--- NOTE | 2020-11-15 09:09 | ED.VIS.GEN ---
History of Present Illness Chief Complaint: Neuro S/Sx Informant: Patient Narrative: 35-year-old female unfortunately cannot provide much information at the time of presentation. She tells me about 2 weeks ago she got up to use the bathroom fell backwards passing out and striking her head on the coffee table. Since that time she has had headache intermittently. States that her left arm would intermittently go numb. She cannot describe that feeling further. She tells me that she has been getting dizzy with worsening headaches since this past . She states that today any type of motion at work resulted in dizziness. There was report of facial droop but the patient does not appear to have a facial droop and she cannot tell me about this. - Past Medical History (1) Asthma Status: Chronic Past Medical History - Allergies and Home Meds Allergies/Adverse Reactions: Allergies Penicillins Allergy (Verified 08/29/20 17:26) Other Primary Care Physician: Wei Nickerson MD [STAFF PHYSICIAN] - (call to arrange follow up with primary care) Surgical History: noncontributory Smoking Status: Current every day smoker Drugs: None Review of Systems General: Reports: Malaise. Denies: Chills, Fever, Sweats Eyes: Denies: Visual changes - bilaterally, Diplopia ENT: Denies: Rhinorrhea, Sore throat Cardiovascular: Reports: - - syncope. Denies: Chest pain, Palpitations Respiratory: Denies: Dyspnea, Cough, Dyspnea on exertion Gastrointestinal: Denies: Abdominal pain, Nausea, Vomiting, Diarrhea, Melena, Hematochezia Genitourinary: Denies: Dysuria, Hematuria, Frequency Musculoskeletal: Reports: Neck pain. Denies: Back pain, Extremity Pain Skin: Denies: Rash, Wounds Neurological: Reports: Headache, Parasthesia, Numbness. Denies: Weakness Physical Exam Vital Signs/Narrative: Vital Signs Temp Pulse Resp Pulse Ox 11/15/20 09:00 112 H 23 H 100 11/15/20 08:53 97.8 F 118 H 22 H 97 Inital Vital Signs reviewed: Yes General: Well nourished, Well developed, No Acute Distress, - - Continuously has her eyes rolled to the top of her head but occasionally look at me. She contorts her face and neck. Head: Normocephalic, Atraumatic, - Eyes: Perrl, EOMI ENT: Moist mucous membranes, No rhinorrhea Neck: Supple, Nontender Cardiovascular: Regular rate, No murmurs, Tachycardia Respiratory: No distress, CTA bilaterally, Chest nontender Abdomen: Soft, Nontender, Nondistended, Normal bowel sounds Back: Nontender, Normal Inspection Extremities: Nontender, No edema Skin: Normal color, No rash Neurological: Alert, Oriented x3, Cranial nerves II-XII grossly intact, Normal Strength, Normal Sensation Diagnostic/Tx/Re-eval Clinical Impression(s) from Imaging Studies Brain CT 11/15/20 09:08 IMPRESSION: Normal unenhanced CT scan of the brain. Electronically Signed: Gavin Osullivan MD at 9:56 EDT , Service support , Cervical Spine CT 11/15/20 09:09 IMPRESSION: Facet joint osteoarthritis and hypertrophy of the left facet joint at the C4-C5 level causing mild to moderate degree of left neural foraminal stenosis. Electronically Signed: Gavin Osullivan MD at 9:55 EDT , Service support , Laboratory Last Values WBC 9.1 K/mm3 (4.4-11.0) 11/15/20 11:25 Corrected WBC Cancelled 11/15/20 10:38 RBC 5.13 M/mm3 (4.2-5.4) 11/15/20 11:25 Hgb 16.1 g/dL (12.0-15.0) H 11/15/20 11:25 Hct 44.0 % (37-47) 11/15/20 11:25 MCV 85.8 fL (81-99) 11/15/20 11:25 MCH 31.4 pg (27.0-32.0) 11/15/20 11:25 MCHC 36.6 g/dL (32-36) H 11/15/20 11:25 RDW Std Deviation 35.6 fl (35.1-43.9) 11/15/20 11:25 RDW Coeff of Ramírez 11.4 % (11.6-14.6) L 11/15/20 11:25 Plt Count 346 K/mm3 (150-450) 11/15/20 11:25 MPV 9.3 fl (6.2-12.0) 11/15/20 11:25 Immature Gran % (Auto) 0.400 % (0.0-0.9) 11/15/20 11:25 Neut % (Auto) 67.4 % (47-70) 11/15/20 11:25 Lymph % (Auto) 22.6 % (19-41) 11/15/20 11:25 [place] % (Auto) 7.2 % (0-10) 11/15/20 11:25 Eos % (Auto) 1.8 % (0-5) 11/15/20 11:25 Baso % (Auto) 0.6 % (0-1) 11/15/20 11:25 Absolute Neuts (auto) 6.1 X10^3/uL (2.0-7.7) 11/15/20 11:25 Absolute Lymphs (auto) 2.05 X10^3/uL (0.83-4.51) 11/15/20 11:25 Total Counted Cancelled 11/15/20 10:38 Neutrophils % (Manual) Cancelled 11/15/20 10:38 Band Neutrophils % Cancelled 11/15/20 10:38 Lymphocytes % (Manual) Cancelled 11/15/20 10:38 Monocytes % (Manual) Cancelled 11/15/20 10:38 Eosinophils % (Manual) Cancelled 11/15/20 10:38 Basophils % (Manual) Cancelled 11/15/20 10:38 Metamyelocytes % Cancelled 11/15/20 10:38 Myelocytes % Cancelled 11/15/20 10:38 Promyelocytes % Cancelled 11/15/20 10:38 Blast Cells % Cancelled 11/15/20 10:38 Plasma Cell % (Manual) Cancelled 11/15/20 10:38 Other Cells % Cancelled 11/15/20 10:38 Nucleated RBC % 0 % (0-5) 11/15/20 11:25 Nucleated RBCs/100 WBC Cancelled 11/15/20 10:38 Differential Comment Cancelled 11/15/20 10:38 Diff Path Review Cancelled 11/15/20 10:38 Hypersegmented Neuts Cancelled 11/15/20 10:38 Atypical Lymphocytes Cancelled 11/15/20 10:38 Reactive Lymphocytes Cancelled 11/15/20 10:38 Smudge Cells Cancelled 11/15/20 10:38 Toxic Granulation Cancelled 11/15/20 10:38 Toxic Vacuolation Cancelled 11/15/20 10:38 Dohle Bodies Cancelled 11/15/20 10:38 Merissa Rods Cancelled 11/15/20 10:38 Platelet Estimate Cancelled 11/15/20 10:38 Plt Morphology Comment Cancelled 11/15/20 10:38 RBC Morphology Cancelled 11/15/20 10:38 RBC Morphology Cancelled 11/15/20 10:38 Polychromasia Cancelled 11/15/20 10:38 Hypochromasia Cancelled 11/15/20 10:38 Poikilocytosis Cancelled 11/15/20 10:38 Basophilic Stippling Cancelled 11/15/20 10:38 Anisocytosis Cancelled 11/15/20 10:38 Microcytosis Cancelled 11/15/20 10:38 Macrocytosis Cancelled 11/15/20 10:38 Spherocytes Cancelled 11/15/20 10:38 Sickle Cells Cancelled 11/15/20 10:38 Target Cells Cancelled 11/15/20 10:38 Tear Drop Cells Cancelled 11/15/20 10:38 Ovalocytes Cancelled 11/15/20 10:38 Stomatocytes Cancelled 11/15/20 10:38 [place] Bodies Cancelled 11/15/20 10:38 [place] Cells Cancelled 11/15/20 10:38 Bite Cells Cancelled 11/15/20 10:38 Crenated Cell Cancelled 11/15/20 10:38 Acanthocytes (Spur) Cancelled 11/15/20 10:38 Rouleaux Cancelled 11/15/20 10:38 Schistocytes Cancelled 11/15/20 10:38 PT 13.3 SECONDS (11.7-14.9) 11/15/20 10:38 INR 1.1 11/15/20 10:38 APTT 26.0 Seconds (24.1-36.2) 11/15/20 10:38 Sodium 133 mmol/L (136-145) L 11/15/20 10:38 Potassium 3.3 mmol/L (3.5-5.1) L 11/15/20 10:38 Chloride 103 mmol/L (98-107) 11/15/20 10:38 Carbon Dioxide 23.0 mmol/L (21.0-32.0) 11/15/20 10:38 Anion Gap 7 (5-15) 11/15/20 10:38 BUN 14 mg/dL (7-18) 11/15/20 10:38 Creatinine 1.22 mg/dL (0.55-1.02) H 11/15/20 10:38 Estim Creat Clear Calc 50.02 ml/min 11/15/20 10:38 Est GFR (MDRD) Af Amer 64 mL/min (>60) 11/15/20 10:38 Est GFR (MDRD) Non-Af 53 mL/min (>60) L 11/15/20 10:38 BUN/Creatinine Ratio 11.5 RATIO (10-20) 11/15/20 10:38 Glucose 77 mg/dL (74-106) 11/15/20 10:38 Calcium 9.4 mg/dL (8.5-10.1) 11/15/20 10:38 Total Bilirubin 0.50 mg/dL (0.20-1.00) 11/15/20 10:38 AST 14 U/L (15-37) L 11/15/20 10:38 ALT 24 U/L (13-56) 11/15/20 10:38 Alkaline Phosphatase 89 U/L (45-117) 11/15/20 10:38 Troponin I < 0.015 ng/mL (<0.045) 11/15/20 10:38 Total Protein 7.7 g/dL (6.4-8.2) 11/15/20 10:38 Albumin 3.8 g/dL (3.2-5.0) 11/15/20 10:38 Globulin 3.9 g/dL (2.2-4.2) 11/15/20 10:38 Albumin/Globulin Ratio 1.0 RATIO (0.9-2.4) 11/15/20 10:38 Lipase 87 U/L (73-393) 11/15/20 10:38 Urine Color Yellow (Yellow) 11/15/20 10:50 Urine Clarity Sl. Cloudy (Clear) 11/15/20 10:50 Urine pH 5.0 (5.0 - 8.0) 11/15/20 10:50 Ur Specific [place] 1.025 (1.002-1.030) 11/15/20 10:50 Urine Protein 500 mg/dl (Negative) H 11/15/20 10:50 Urine Glucose (UA) 50 mg/dl (Normal) H 11/15/20 10:50 Urine Ketones 15 mg/dl (Negative) H 11/15/20 10:50 Urine Occult Blood 25 /ul (Negative) H 11/15/20 10:50 Urine Nitrite Positive (Negative) H 11/15/20 10:50 Urine Bilirubin 3 mg/dL (Negative) H 11/15/20 10:50 Urine Urobilinogen 4 mg/dl (Normal) H 11/15/20 10:50 Ur Leukocyte Esterase 25 /ul (Negative) H 11/15/20 10:50 Urine RBC 0-5 SEEN /hpf (0-5) 11/15/20 10:50 Urine WBC 0-5 SEEN /hpf (0-5) 11/15/20 10:50 Ur Squamous Epith Cells 0-5 SEEN /hpf (5-10) 11/15/20 10:50 Urine Bacteria 1+ /hpf (None Seen) 11/15/20 10:50 Hyaline Casts 0-5 SEEN /lpf (0-5) 11/15/20 10:50 Urine Mucus 2+ /hpf (<or=2+) 11/15/20 10:50 Urine Opiates Screen NEGATIVE (< 300 ng/mL) 11/15/20 10:50 Urine Methadone Screen NEGATIVE (< 300 ng/mL) 11/15/20 10:50 Ur Barbiturates Screen NEGATIVE (< 200 ng/mL) 11/15/20 10:50 Ur Phencyclidine Scrn NEGATIVE (< 25 ng/mL) 11/15/20 10:50 Ur Amphetamines Screen POSITIVE (<1000 ng/mL) H 11/15/20 10:50 U Methamphetamin-MDMA POSITIVE (< 500 ng/mL) H 11/15/20 10:50 U Benzodiazepines Scrn NEGATIVE (< 200 ng/mL) 11/15/20 10:50 Urine Cocaine Screen NEGATIVE (< 300 ng/mL) 11/15/20 10:50 U Cannabinoids Screen POSITIVE (< 50 ng/mL) H 11/15/20 10:50 Ur Drug Screen Comment 11/15/20 10:50 Ethyl Alcohol < 3.0 mg/dL 11/15/20 10:38 - EKG Initial EKG Interpretation: Sinus Rhythm - EKG demonstrates a normal sinus rhythm at a rate of 91 bpm. No concerning features of ACS or ectopy noted - Medical Decision Making Basic blood work negative. CT the brain and neck show degenerative changes of the spine. Urine toxicology demonstrates amphetamines and cannabis. She tells me that she has not used any type of drugs for many months. Patient has uncontrollable tics that could be consistent with methamphetamine withdrawal. At this point I do not see a medical emergency to admit her into the hospital for. I will refer her to primary care return if worsening or concerns ED Disposition - Plan for ED Patient: Disposition: Home or Assisted Living Diagnosis: Headache, Dizziness, Amphetamine abuse Instructions: ED Dizziness, Uncertain Cause Referrals: Wei Nickerson MD [STAFF PHYSICIAN] - (call to arrange follow up with primary care)
[2020-11-15 09:15] VITALS: BP 106/76; PULSE 96; RESP 19; O2SAT 100
[2020-11-15 10:57] LABS: International Normalized Ratio 1.1; Prothrombin Time (Protime)PT. 13.3 SECONDS (11.7-14.9)
[2020-11-15 10:58] LABS: Color, Urine Yellow (Yellow); Glucose, Dipstick 50 mg/dl (Normal); Ketone-Dipstick 15 mg/dl (Negative); Leukocyte Esterase-Dipstick 25 /ul (Negative); Nitrite-Dipstick Positive (Negative); Occult Blood-Urine 25 /ul (Negative); Protein-Dipstick 500 mg/dl (Negative); Specific Gravity, Urine 1.025 (1.002-1.030); Urine Clarity Sl. Cloudy (Clear); Urine Urobilinogen 4 mg/dl (Normal)
[2020-11-15] MEDS: Ketorolac 30 MG/ML Syringe IV (11:04)
[2020-11-15] MEDS: 0.9% Normal Saline 1,000 ML 1000 ML IV (11:04)
[2020-11-15 11:07] LABS: AST(SGOT) 14 U/L (15-37); Alanine Aminotransfer ALT/SGPT 24 U/L (13-56); Albumin, Serum 3.8 g/dL (3.2-5.0); Alkaline Phosphatase 89 U/L (45-117); Anion Gap 7 (5-15); BUN 14 mg/dL (7-18); BUN/Creat Ratio 11.5 RATIO (10-20); Calcium,Total 9.4 mg/dL (8.5-10.1); Chloride 103 mmol/L (98-107); Creatinine, Serum 1.22 mg/dL (0.55-1.02); EST Glomerular Filtration Rate 53 mL/min (>60); Est Glom Filt Rate - Afr Amer 64 mL/min (>60); Estimated Creatinine Clearance 50.02 ml/min; Globulin 3.9 g/dL (2.2-4.2); Glucose 77 mg/dL (74-106); Lipase 87 U/L (73-393); Potassium 3.3 mmol/L (3.5-5.1); Protein, Total 7.7 g/dL (6.4-8.2); Sodium Level 133 mmol/L (136-145)
[2020-11-15 11:08] LABS: Alcohol, Blood (Medical)-Serum < 3.0 mg/dL
[2020-11-15 11:09] LABS: Urine Bilirubin Dipstick 3 mg/dL (Negative)
[2020-11-15 11:11] LABS: Bacteria 1+ /hpf (None Seen); Hyaline Cast 0-5 SEEN /lpf (0-5); Mucous, Urine 2+ /hpf (<or=2+); Red Blood Cells-Urine 0-5 SEEN /hpf (0-5); Squamous Epithelial Cells - UA 0-5 SEEN /hpf (5-10); White Blood Cells 0-5 SEEN /hpf (0-5)
[2020-11-15 11:23] LABS: Amphetamine Urine VISTA POSITIVE (<1000 ng/mL); Barbiturate Urine VISTA NEGATIVE (< 200 ng/mL); Benzodiazepine Urine VISTA NEGATIVE (< 200 ng/mL); Cocaine Urine VISTA NEGATIVE (< 300 ng/mL); Ecstacy Urine VISTA POSITIVE (< 500 ng/mL); Methadone Urine VISTA NEGATIVE (< 300 ng/mL); PCP Urine VISTA NEGATIVE (< 25 ng/mL); THC Urine VISTA POSITIVE (< 50 ng/mL); Vista UDS pH Range 5
[2020-11-15 11:31] LABS: Absolute Lymphocyte Count 2.05 X10^3/uL (0.83-4.51); Absolute Neutrophil Count 6.1 X10^3/uL (2.0-7.7); Basophil# 0.05 X10^3/uL; Basophil% 0.6 % (0-1); Eosinophil# 0.16 X10^3/uL; Eosinophils% 1.8 % (0-5); Hemoglobin 16.1 g/dL (12.0-15.0); Lymphocyte # 2.05 X10^3/ul (4.0); Lymphocyte % 22.6 % (19-41); Mean Corp Hgb Conc 36.6 g/dL (32-36); Mean Corpuscular Hgb 31.4 pg (27.0-32.0); Mean Corpuscular Volume 85.8 fL (81-99); Mean Platelet Vol. 9.3 fl (6.2-12.0); Monocyte# 0.65 X10^3/uL; Monocyte% 7.2 % (0-10); NRBC Flagged by Analyzer 0 % (0-5); Neutrophil # 6.14 X10^3/uL (2.7-7.7); Neutrophil % 67.4 % (47-70); Platelet Count 346 K/mm3 (150-450); RBC Distribution Width CV 11.4 % (11.6-14.6); RBC Distribution Width SD 35.6 fl (35.1-43.9); Red Blood Count 5.13 M/mm3 (4.2-5.4); White Blood Count 9.1 K/mm3 (4.4-11.0)
[2020-11-15 13:12] VITALS: BP 104/73; PULSE 80; RESP 16; O2SAT 96
--- NOTE | 2020-11-15 13:17 | ED.RN ---
RN TO BEDSIDE TO D/C PATIENT. D/C INSTRUCTIONS REVIEWED WITH NO QUESTIONS OR CONCERNS. VITALS WNL. PT IV D/C'D. PT AMBULATORY UPON D/C. SEE DOWNTIME FORM.
== END 2020-11-15 13:18 | disposition home or self-care (01) ==
PROVIDERS: Emergency Provider Emergency Medicine
DX: R51.9 Headache, unspecified (principal); R42 Dizziness and giddiness; R29.810 Facial weakness; F15.10 Other stimulant abuse, uncomplicated; F17.200 Nicotine dependence, unspecified, uncomplicated; J45.909 Unspecified asthma, uncomplicated; Z88.0 Allergy status to penicillin; M48.02 Spinal stenosis, cervical region
CPT/HCPCS: 36415; 70450; 72125; 80053; 80307; 81001; 82077; 83690; 84484; 85025; 85610; 85730; 93005; 96361; 96374; 99285; J7030; A4216

== ENCOUNTER 2021-04-13 19:29 | Emergency (ER) | payer SELFPAY ==
[2021-04-13 19:29] VITALS: BP 96/75; PULSE 78; RESP 16; TEMP 36.3; O2SAT 97; BMI 18.1
[2021-04-13 19:41] LABS: Bacteria 0 SEEN /hpf (None Seen); Mucous, Urine 0 SEEN /hpf (<or=2+); Red Blood Cells-Urine 0 SEEN /hpf (0-5)
[2021-04-13 19:51] LABS: Color, Urine Yellow (Yellow); Glucose, Dipstick Normal (Normal); Ketone-Dipstick Negative (Negative); Leukocyte Esterase-Dipstick 25 /ul (Negative); Nitrite-Dipstick Negative (Negative); Occult Blood-Urine Negative /ul (Negative); Protein-Dipstick Negative (Negative); Specific Gravity, Urine 1.025 (1.002-1.030); Urine Bilirubin Dipstick Negative (Negative); Urine Clarity Clear (Clear); Urine Urobilinogen Normal (Normal)
[2021-04-13 19:57] LABS: Squamous Epithelial Cells - UA 0-5 SEEN /hpf (5-10); White Blood Cells 0-5 SEEN /hpf (0-5)
[2021-04-13 22:08] LABS: Absolute Lymphocyte Count 1.89 X10^3/uL (0.83-4.51); Basophil# 0.03 X10^3/uL; Basophil% 0.4 % (0-1); Eosinophil# 0.18 X10^3/uL; Eosinophils% 2.1 % (0-5); Hematocrit 44.6 % (37-47); Hemoglobin 15.2 g/dL (12.0-15.0); Lymphocyte # 1.89 X10^3/ul (0.83-4.51); Lymphocyte % 22.1 % (19-41); Mean Corp Hgb Conc 34.1 g/dL (32-36); Mean Corpuscular Hgb 31.3 pg (27.0-32.0); Mean Corpuscular Volume 91.8 fL (81-99); Mean Platelet Vol. 10.3 fl (6.2-12.0); Monocyte# 0.44 X10^3/uL; Monocyte% 5.1 % (0-10); NRBC Flagged by Analyzer 0 % (0-5); Neutrophil # 6.01 X10^3/uL (2.7-7.7); Neutrophil % 70.1 % (47-70); Platelet Count 242 K/mm3 (150-450); RBC Distribution Width CV 11.9 % (11.6-14.6); RBC Distribution Width SD 39.8 fl (35.1-43.9); Red Blood Count 4.86 M/mm3 (4.2-5.4); White Blood Count 8.6 K/mm3 (4.4-11.0)
[2021-04-13 22:24] LABS: ALB/GLOB Ratio 1.1 RATIO (0.9-2.4); AST(SGOT) 21 U/L (15-37); Alanine Aminotransfer ALT/SGPT 24 U/L (13-56); Albumin, Serum 3.9 g/dL (3.2-5.0); Alkaline Phosphatase 71 U/L (45-117); Anion Gap 4 (5-15); BUN 10 mg/dL (7-18); BUN/Creat Ratio 15.6 RATIO (10-20); Calcium,Total 8.9 mg/dL (8.5-10.1); Chloride 108 mmol/L (98-107); Creatinine, Serum 0.64 mg/dL (0.55-1.02); EST Glomerular Filtration Rate 111 mL/min (>60); Est Glom Filt Rate - Afr Amer 134 mL/min (>60); Estimated Creatinine Clearance 91.35 ml/min; Globulin 3.5 g/dL (2.2-4.2); Glucose 83 mg/dL (74-106); Lipase 106 U/L (73-393); Potassium 3.7 mmol/L (3.5-5.1); Protein, Total 7.4 g/dL (6.4-8.2); Sodium Level 139 mmol/L (136-145)
--- NOTE | 2021-04-13 22:27 | ED.VIS.GI ---
HPI HPI - GI History of Present Illness Chief Complaint: Abd Pain Informant: patient Abdominal Pain/Flank Pain Onset: Yesterday Narrative Narrative: Patient is a 36-year-old female presenting with headache, cough, nausea, vomiting and diarrhea. She has been exposed to Covid. Patient states she has been feeling freezing but denies any fever. 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 She has associated cough that is nonproductive. She notes she feels very tired and does have some shortness of breath. She had vomiting yesterday but has been nauseous today. She had diarrhea for the past 2 days. She denies any blood in her vomit or stool. States he has abdominal pain and points to her right periumbilical/epigastric region. No rash. No urinary symptoms. Has been taking ibuprofen and Tylenol with no relief of her symptoms. No other complaints at this time. [facility] Medical History Depression Home Medications sertraline 100 mg PO DAILY 05/14/19 [History Last Taken Unknown] traZODone 100 mg PO QHS 05/14/19 [History Last Taken Unknown] naproxen 500 mg PO BID #14 tab 08/29/20 [Rx Last Taken Unknown] famotidine [Pepcid] 20 mg PO DAILY #14 tab 04/14/21 [Rx Last Taken Unknown] ibuprofen 600 mg PO Q8H PRN PRN #20 tab 04/14/21 [Rx Last Taken Unknown] ondansetron HCl [Zofran] 4 mg PO Q8H PRN #14 tab 04/14/21 [Rx Last Taken Unknown] Allergy/AdvReac Type Severity Reaction Status Date / Time Penicillins Allergy Other Verified 04/13/21 19:31 Social History Smoking Status: Current every day smoker tobacco type: cigarettes ROS ROS ED Constitutional Constitutional ED: Reports chills; Denies fever(s) ENT ENT ED: Reports rhinorrhea and sore throat Cardiovascular Cardiovascular: Denies chest pain Respiratory/Chest Respiratory/Chest: Reports cough and dyspnea Gastrointestinal Gastrointestinal: Reports abdominal pain, diarrhea, nausea and vomiting; Denies melena Genitourinary Genitourinary ED: Denies dysuria or hematuria Musculoskeletal Musculoskeletal: Reports myalgias Integumentary Denies rash Neurologic Neurologic: Reports headache(s) and weakness Psychiatric Psychiatric: Denies anxiety or depression EXAM Physical Exam Const Vital Signs: 04/13/21 19:29 Temperature 97.4 F L Temperature Source Temporal Pulse Rate 78 Respiratory Rate 16 Blood Pressure 96/75 Blood Pressure Mean 82 Pulse Ox 97 Oxygen Delivery Method Room Air Positive well nourished and well developed General Appearance ED: well developed HEENT Reports TM's clear and moist mucous membranes normocephalic and atraumatic Tympanic Membrane ED: Yes TM's clear Eyes PERRL and EOMs intact bilaterally Neck supple and no meningeal signs Resp normal respiratory effort and clear to auscultation bilaterally Cardio regular rhythm and no murmurs GI non-tender and non-distended Auscultation: normoactive bowel sounds Palpation: soft; Negative for guarding Back/Spine no CVA tenderness Neuro no sensory deficits noted Sensorium / Orientation: alert Motor Exam: strength 5/5 throughout Psych mental status grossly normal Skin Lesions: no lesions Rashes: no rashes MDM MDM MDM Narrative Medical decision making narrative: Patient evaluated for multiple symptoms including nausea, vomiting, diarrhea, myalgias, headache as well as respiratory symptoms. I suspect her presentation is viral. She had exposure to Covid and while her Covid test is negative in the ER I still have a high suspicion for her having COVID-19 infection. Patient does not have any other comorbidities though would not be a candidate for monoclonal antibody. She is not hypoxic. Her she is hemodynamically stable. She will be treated symptomatically with Zofran, Motrin and Pepcid. She is given return precautions. She verbalizes agreement understand this plan. She is discharged home in stable condition. Lab Data Labs: Laboratory Results - last 24 hr 04/13/21 04/13/21 04/13/21 19:35 21:38 21:38 WBC 8.6 RBC 4.86 Hgb 15.2 H Hct 44.6 MCV 91.8 MCH 31.3 MCHC 34.1 RDW Std Deviation 39.8 RDW Coeff of Ramírez 11.9 Plt Count 242 MPV 10.3 Immature Gran % (Auto) 0.200 Neut % (Auto) 70.1 H Lymph % (Auto) 22.1 [place] % (Auto) 5.1 Eos % (Auto) 2.1 Baso % (Auto) 0.4 Absolute Neuts (auto) 6.0 Absolute Lymphs (auto) 1.89 Nucleated RBC % 0 Sodium 139 Potassium 3.7 Chloride 108 H Carbon Dioxide 27.0 Anion Gap 4 L BUN 10 Creatinine 0.64 Estim Creat Clear Calc 91.35 Est GFR (MDRD) Af Amer 134 Est GFR (MDRD) Non-Af 111 BUN/Creatinine Ratio 15.6 Glucose 83 Calcium 8.9 Total Bilirubin 0.40 AST 21 ALT 24 Alkaline Phosphatase 71 Total Protein 7.4 Albumin 3.9 Globulin 3.5 Albumin/Globulin Ratio 1.1 Lipase 106 Urine Color Yellow Urine Clarity Clear Urine pH 6.0 Ur Specific Emerson 1.025 Urine Protein Negative Urine Glucose (UA) Normal Urine Ketones Negative Urine Occult Blood Negative Urine Nitrite Negative Urine Bilirubin Negative Urine Urobilinogen Normal Ur Leukocyte Esterase 25 H Urine RBC 0 SEEN Urine WBC 0-5 SEEN Ur Squamous Epith Cells 0-5 SEEN Urine Bacteria 0 SEEN Urine Mucus 0 SEEN Radiography Diagnostic Testing: Radiology Impression Chest X-Ray 04/13/21 23:11 IMPRESSION: No acute radiographic abnormalities. Electronically Signed: Anthony Smith MD at 23:39 EDT Tel , Service support , Discharge Plan Triage Chief Complaint: Abd Pain ED Provider: Melony Tubbs Dx/Rx/DC Orders Clinical Impression: Suspected COVID-19 virus infection, Abdominal pain, vomiting, and diarrhea Instructions: ED Viral Syndrome (Adult), Symptoms of COVID-19 Infection Prescriptions: New ondansetron HCl [Zofran] 4 mg tablet 4 mg PO Q8H PRN (Reason: nausea and vomiting) Qty: 14 RF: 0 famotidine [Pepcid] 20 mg tablet 20 mg PO DAILY Qty: 14 RF: 0 ibuprofen 600 mg tablet 600 mg PO Q8H PRN PRN (Reason: fever or pain) Qty: 20 RF: 0 No Action sertraline 50 MG tablet 100 mg PO DAILY RF: 0 traZODone 50 MG 100 mg PO QHS RF: 0 naproxen 500 MG tablet 500 mg PO BID Qty: 14 RF: 0 Primary Care Provider: Care Physician,No Primary Referrals: Maritza Wellington [NON-STAFF] - Care Physician,No Primary [Primary Care Provider] - Disposition Disposition: Home, Self Care Discharge Date/Time: 04/14/21 00:49
[2021-04-13] MEDS: Famotidine 200 MG/20 ML MDV 20 MG in 0.9% Normal Saline (Pres. free 8 ML 300 MG IV (22:56)
[2021-04-13] MEDS: 0.9% Normal Saline 1,000 ML 999 ML IV (22:57)
[2021-04-13] MEDS: Ondansetron 4 MG/2 ML Vial IV (22:57)
[2021-04-13] MEDS: Ketorolac 15 MG/ML Vial IV (22:57)
--- NOTE | 2021-04-13 23:11 | RAD_ITS ---
INDICATION: cough EXAMINATION/TECHNIQUE: X-RAY - XR Chest 1 View COMPARISON: None. FINDINGS: The lungs are clear. The cardiomediastinal silhouette is unremarkable. No pleural effusion or pneumothorax. No acute osseous abnormalities. RAD/Chest 1 View (Portable) IMPRESSION: No acute radiographic abnormalities. Electronically Signed: Anthony Smith MD at 23:39 EDT Tel , Service support ,
[2021-04-14 00:49] VITALS: RESP 18
== END 2021-04-14 00:49 | disposition home or self-care (01) ==
PROVIDERS: Emergency Provider Emergency Medicine
DX: R10.9 Unspecified abdominal pain (principal); Z20.822 Contact with and (suspected) exposure to COVID-19; R11.2 Nausea with vomiting, unspecified; R19.7 Diarrhea, unspecified; F17.210 Nicotine dependence, cigarettes, uncomplicated; F32.9 Major depressive disorder, single episode, unspecified
CPT/HCPCS: 71045; 80053; 81001; 83690; 85025; 87426; 96361; 96374; 96375; 99283; J7030; A4216; J2405; J3490

== ENCOUNTER 2021-05-10 11:27 | Emergency (ER) | payer SELFPAY ==
[2021-05-10 11:27] VITALS: BP 97/78; PULSE 119; RESP 20; TEMP 36.6; O2SAT 99; BMI 18.4
--- NOTE | 2021-05-10 11:41 | EX.ED.DYSGE1 ---
HPI History of Present Illness Chief Complaint: General Illness Detail of Chief Complaint: Generalized illness with loss of taste and smell Informant: patient Onset/Context/Timing Onset: Yesterday Context: Sudden Onset Timing: Continuous Quality: Respiratory symptoms, arthralgias, loss of taste and smell Current Severity: Mild Maximum Severity: Moderate Worsened by: Dyspnea on exertion Relieved by: Nothing Associated Symptoms Associated Symptoms: Headache, upper respiratory symptoms, loss of taste and smell and arthralgi Narrative Narrative: Patient is a 36-year-old woman with history of asthma who smokes half pack per day. Patient had a positive Covid test through the [facility] yesterday. Her symptoms started yesterday. She complains of headache. She denies ocular, visual or auditory symptoms. She does report rhinorrhea, congestion and sore throat. Her cough is nonproductive. She denies nausea, vomiting diarrhea. She denies rash. She has no other complaints. Prior similar symptoms: No Recent Illness/Hospitalization: No [facility] Medical History Depression Home Medications sertraline 100 mg PO DAILY 05/14/19 [History Last Taken Unknown] traZODone 100 mg PO QHS 05/14/19 [History Last Taken Unknown] naproxen 500 mg PO BID #14 tab 08/29/20 [Rx Last Taken Unknown] famotidine [Pepcid] 20 mg PO DAILY #14 tab 04/14/21 [Rx Last Taken Unknown] ibuprofen 600 mg PO Q8H PRN PRN #20 tab 04/14/21 [Rx Last Taken Unknown] ondansetron HCl [Zofran] 4 mg PO Q8H PRN #14 tab 04/14/21 [Rx Last Taken Unknown] Allergy/AdvReac Type Severity Reaction Status Date / Time Penicillins Allergy Other Verified 05/10/21 11:29 Social History (Updated 05/10/21 @ 11:[address] Tomás Daley MD) household members: none Smoking Status: Current every day smoker tobacco type: cigarettes alcohol intake: never substance use type: does not use ROS ROS ED Constitutional Constitutional ED: Reports chills, fever(s) and subjective; Denies sweats or weight loss Eyes Eyes: Denies blurry vision, change in vision or diplopia ENT ENT ED: Reports rhinorrhea and sore throat; Denies ear pain Cardiovascular Cardiovascular: Reports palpitations; Denies chest pain, orthopnea or paroxysmal nocturnal dyspnea Respiratory/Chest Respiratory/Chest: Reports cough, dyspnea and dyspnea on exertion; Denies orthopnea, paroxysmal nocturnal dyspnea or sputum Gastrointestinal Gastrointestinal: Reports nausea; Denies abdominal pain, constipation, diarrhea, melena or vomiting Genitourinary Genitourinary ED: Denies dysuria, hematuria or urinary frequency Musculoskeletal Musculoskeletal: Reports arthralgias and myalgias; Denies back pain or neck pain Integumentary Denies rash Neurologic Neurologic: Reports headache(s) and weakness; Denies paresthesias Endocrine Endocrinology: Denies polydipsia, polyphagia or polyuria EXAM Physical Exam Const Vital Signs: 05/10/21 11:27 Temperature 97.9 F Temperature Source Temporal Pulse Rate 119 H Respiratory Rate 20 H Blood Pressure 97/78 Blood Pressure Mean 84 Pulse Ox 99 Oxygen Delivery Method Room Air Positive well nourished and well developed General Appearance ED: well developed and NAD HEENT Reports TM's clear and moist mucous membranes HEENT Narrative: Head is atraumatic normocephalic. Nares patent. Posterior pharynx no erythema or exudate. Tympanic Membrane ED: Yes TM's clear Eyes PERRL and EOMs intact bilaterally General Eye ED: Negative for pale conjunctiva or scleral icterus Neck no lymphadenopathy, supple and no JVD General: Negative for tenderness Chest Wall inspection of chest normal Resp normal respiratory effort and No clear to auscultation bilaterally Effort and Inspection: Negative for retractions Auscultation: rales bilateral lower; Negative for diminished lung sounds Cardio regular rhythm, S1 normal heart sound, S2 normal heart sound and no murmurs Rate: tachycardic GI normal to inspection, nondistended, normoactive bowel sounds, non-tender and non-distended Palpation: soft Back/Spine no CVA tenderness Cervical Spine: Negative for cervical spine tenderness Thoracic Spine / Upper Back: Negative for thoracic spinal tenderness or paraspinal muscle tenderness Extremity normal to inspection Extremity Narrative: In lower extremity DVT General Extremety ED: Negative for edema or tenderness General Extremity: Negative for edema Neuro oriented x3, CN's II-XII intact bilaterally and no sensory deficits noted Sensorium / Orientation: alert Psych mental status grossly normal Skin no rashes or lesions noted and no wounds MDM MDM MDM Narrative Medical decision making narrative: Patient symptoms are consistent with Covid. She had a outpatient Covid test that was positive. With bilateral rales she has Covid pneumonia. Patient is a candidate for monoclonal therapy. We will fill out a. Appropriate paperwork. Discharge Plan Triage Chief Complaint: General Illness ED Provider: Tomás Daley Dx/Rx/DC Orders Clinical Impression: Pneumonia due to 2019-nCoV Instructions: Coronavirus Disease 2019 (COVID-19): Caring for Yourself or Others Prescriptions: No Action sertraline 50 MG tablet 100 mg PO DAILY RF: 0 traZODone 50 MG 100 mg PO QHS RF: 0 naproxen 500 MG tablet 500 mg PO BID Qty: 14 RF: 0 ondansetron HCl [Zofran] 4 mg tablet 4 mg PO Q8H PRN (Reason: nausea and vomiting) Qty: 14 RF: 0 famotidine [Pepcid] 20 mg tablet 20 mg PO DAILY Qty: 14 RF: 0 ibuprofen 600 mg tablet 600 mg PO Q8H PRN PRN (Reason: fever or pain) Qty: 20 RF: 0 Other Ambulatory Orders: COVID Outpatient Monoclonal Antibody Referral (Routine) Timeframe: 1 Day Facility: [facility] - Location: [facility] Ordered By: Dr. Tomás Daley Primary Care Provider: Maritza Wellington Referrals: Maritza Wellington [Primary Care Provider] - Activity Restrictions/Additional Instructions: You may take 500 mg of Tylenol every 6-8 hours You may take 400 mg of ibuprofen every 6-8 hours You were referred to the monoclonal antibody treatment center. If you do not hear from them in 1 to 2 days call the number on your discharge paperwork Disposition Disposition: Home, Self Care
== END 2021-05-10 12:10 | disposition home or self-care (01) ==
LOC: ED 12:06
PROVIDERS: Emergency Provider Emergency Medicine
DX: U07.1 COVID-19 (principal); J12.82 Pneumonia due to coronavirus disease 2019; F17.210 Nicotine dependence, cigarettes, uncomplicated; F32.9 Major depressive disorder, single episode, unspecified; J45.909 Unspecified asthma, uncomplicated; Z79.1 Long term (current) use of non-steroidal anti-inflammatories (NSAID)
CPT/HCPCS: 99282

== ENCOUNTER 2021-08-29 14:22 | Outpatient (CLI) | payer OTHER, SELFPAY ==
[2021-09-01 10:26] LABS: HPV Reflexed? NOT INDICATED
== END 2021-08-29 23:59 | disposition short-term general hospital (02) ==
LOC: LABSPEC 14:25
PROVIDERS: Visit Provider Obstetrics & Gynecology
DX: Z12.4 Encounter for screening for malignant neoplasm of cervix (principal)
CPT/HCPCS: 88175; G0145

== ENCOUNTER → 2022-03-06 | Outpatient (CLI) | payer OTHER, MEDICAID, SELFPAY ==
--- NOTE | 2022-03-06 09:22 | US_ITS ---
STUDY: ULTRASOUND BREAST - RIGHT REASON FOR EXAM: Female, 37 years old. Palpable lump in the right breast. Abnormal screening mammogram. TECHNIQUE: Axial and longitudinal images of the RIGHT breast were performed with a high resolution ultrasound transducer. # OF IMAGES: 42 COMPARISON: Comparison is made with prior mammogram done earlier in the day. FINDINGS: RIGHT Breast: The palpable abnormality corresponds to a cluster of cysts in the retroareolar region. The largest cyst measures 1.9 cm x 1.5 cm x 1.4 cm. IMPRESSION: The mammographic findings correspond to a cluster of retroareolar cysts. The largest cyst measures 1.9cm x 1.5 cm x 1.4 cm. ASSESSMENT CATEGORY: BIRADS Category 2: Benign. A letter regarding these results will be sent to the patient by the facility within 30 days. Electronically Signed: Gavin Osullivan MD at 12:19 EDT , STUDY: ULTRASOUND BREAST - LEFT REASON FOR EXAM: Female, 37 years old. Abnormal screening mammogram. TECHNIQUE: Axial and longitudinal images of the LEFT breast were performed with a high resolution ultrasound transducer. # OF IMAGES: 42 COMPARISON: Comparison is made with prior mammogram done earlier today. FINDINGS: LEFT Breast: The mammographic abnormality corresponds to a 6 mm x 7 mm x 4 mm cyst at the 7 o''clock position of the breast. US/Breast Limited Unilateral IMPRESSION: The mammographic abnormality corresponds to a 6 mm x 7 mm x 4 mm cyst at the 7 o''clock position of the breast. ASSESSMENT CATEGORY: BIRADS Category 2: Benign. A letter regarding these results will be sent to the patient by the facility within 30 days. Electronically Signed: Gavin Osullivan MD at 12:20 EDT ,
--- NOTE | 2022-03-06 09:22 | BI_ITS ---
MAMMOGRAPHY - BILATERAL DIAGNOSTIC REASON FOR EXAM: Female, 37 years old. Right retroareolar palpable lump. PERTINENT HISTORY: Aunts with breast cancer. TECHNIQUE: Digital bilateral breast chase (3D mammographic acquisition) in the CC and MLO projections. 2-D mediolateral oblique (MLO) and craniocaudad (CC) views of both breasts were obtained. CAD: Full Field Digital Mammography with Computer Added Detection was performed. COMPARISON: None. Baseline examination. FINDINGS: Breast Composition: The breasts are extremely dense, which lowers the sensitivity of mammography. The palpable abnormality corresponds to a 1.6 cm x 1.5 cm well-defined nodule in the right retroareolar region. There is also evidence of a 7.4 mm x 7.4 mm well-defined nodule in the inferior deep central portion of the left breast. Targeted sonographic correlation recommended. No other significant abnormalities are identified. BI/DIAG MAMM W/CAD, BILAT IMPRESSION: Bilateral breast nodules more prominent on the right side as described. Correlation with ultrasound is recommended. ASSESSMENT CATEGORY: BIRADS Category 0: Incomplete. Need additional imaging evaluation. A letter regarding these results will be sent to the patient by the facility within 30 days. Approximately 10% of breast cancers are not detected by mammography. A normal mammogram should not delay biopsy of a clinically suspicious abnormality. Electronically Signed: Gavin Osullivan MD at 10:41 EDT ,
== END | disposition home or self-care (01) ==
PROVIDERS: Visit Provider Obstetrics & Gynecology
DX: N63.20 Unspecified lump in the left breast, unspecified quadrant (principal); Z80.3 Family history of malignant neoplasm of breast; N63.10 Unspecified lump in the right breast, unspecified quadrant; N63.41 Unspecified lump in right breast, subareolar; R92.8 Other abnormal and inconclusive findings on diagnostic imaging of breast
CPT/HCPCS: 76642; 77062; 77066; G0279

== ENCOUNTER 2022-04-24 16:14 | Emergency (ER) | payer OTHER, SELFPAY ==
[2022-04-24 16:18] VITALS: BP 113/75; PULSE 79; RESP 16; TEMP 36.5; O2SAT 98; BMI 22.2
--- NOTE | 2022-04-24 16:28 | EX.ED.DYSGE1 ---
HPI History of Present Illness Chief Complaint: Lower Extremity Injury Detail of Chief Complaint: Left hip injury Informant: patient Onset/Context/Timing Onset: Today Current Severity: Mild Maximum Severity: Moderate Worsened by: Movement, palpation Narrative Narrative: Patient presents after left hip injury. She works at [employer]. She states that she was at a patient's bedside and they were rolling her. Patient started to fall from the side of the bed. Patient put her left leg out to the side and lowered the patient onto her lap and squatted with her for approximate 15 minutes. She complains of pain along the left groin line as well as the lateral portion of the left hip. She took Tylenol around 11 AM this morning for pain. [facility] Medical History Asthma Depression Home Medications naproxen 500 mg tablet (Naprosyn) 500 mg PO BID PRN pain #20 tabs 04/24/22 [Rx Last Taken Unknown] Allergy/AdvReac Type Severity Reaction Status Date / Time Penicillins Allergy Other Verified 04/24/22 16:16 Surgical History Hx of cholecystectomy Hx of tonsillectomy Social History household members: none Smoking Status: Current every day smoker tobacco type: cigarettes alcohol intake: never substance use type: does not use ROS ROS ED Constitutional Constitutional ED: Denies chills or fever(s) Eyes Eyes: Denies change in vision or discharge from eye(s) ENT ENT ED: Denies discharge from eye(s), rhinorrhea or sore throat Cardiovascular Cardiovascular: Denies chest pain or palpitations Respiratory/Chest Respiratory/Chest: Denies cough or dyspnea Gastrointestinal Gastrointestinal: Denies abdominal pain, nausea or vomiting Genitourinary Genitourinary ED: Denies difficulty urinating or dysuria Musculoskeletal Musculoskeletal: Reports extremity pain; Denies back pain Integumentary Denies Abrasions or rash Neurologic Neurologic: Denies headache(s) or weakness Allergic/Immunologic Allergic/Immunologic ED: Denies lip swelling or urticaria EXAM Physical Exam Const Vital Signs: 04/24/22 16:18 Temperature 97.7 F L Temperature Source Temporal Pulse Rate 79 Respiratory Rate 16 Blood Pressure 113/75 Blood Pressure Mean 87 Pulse Ox 98 Oxygen Delivery Method Room Air Positive well nourished and well developed General Appearance ED: well developed HEENT Reports normocephalic and head/scalp atraumatic Eyes PERRL and EOMs intact bilaterally Neck supple Chest Wall inspection of chest normal and palpation of chest normal Resp normal respiratory effort and clear to auscultation bilaterally Cardio regular rate and regular rhythm GI normal to inspection, nondistended, normoactive bowel sounds Palpation: soft Extremity normal to inspection Extremity Narrative: Tenderness of patient on the left groin line as well as over the greater trochanter of the left hip. Mild pain with logroll. Good cap refill and sensation distally. Neuro oriented x3 and no sensory deficits noted Sensorium / Orientation: alert Motor Exam: strength 5/5 throughout Psych mental status grossly normal Skin no rashes or lesions noted MDM MDM MDM Narrative Medical decision making narrative: Patient given naproxen here. Pelvis and left hip x-rays obtained. Radiography Diagnostic Testing: Clinical Impression(s) from Imaging Studies Hip/Pelvis X-Ray 04/24/22 16:35 IMPRESSION: 1. Normal x-ray examination of the pelvis and hip. 2. No fractures or dislocations. 3. No left hip joint effusion. Electronically Signed: Aman Arredondo MD at 17:00 EDT , Treatment and Re-Evaluation Narrative: Pelvis and left hip x-ray per my interpretation reveals no acute finding. Radiology interpretation is reviewed and agrees. Test results discussed with the patient. We will write her naproxen. I will write her work restrictions for the next 3 days. Return instructions provided. Discharge Plan Triage Chief Complaint: Lower Extremity Injury ED Provider: Sherlyn Stewart Dx/Rx/DC Orders Clinical Impression: Strain of left groin Instructions: ED Groin Strain Prescriptions: New naproxen [Naprosyn] 500 mg tablet 500 mg PO BID PRN (Reason: pain) Qty: 20 0RF Stand Alone Forms: Work Status Form Primary Care Provider: Maritza Wellington Referrals: [facility] [Group of Physicians] - 3-5 Days Maritza Wellington [Primary Care Provider] - Disposition Disposition: Home, Self Care
[2022-04-24] MEDS: Naproxen 500 MG Tablet PO (16:34)
--- NOTE | 2022-04-24 16:35 | RAD_ITS ---
STUDY: AP PELVIS AND LEFT HIP X-RAY SERIES OF 1641 HOURS ON 04/24/2022 REASON FOR EXAM: 37-year-old female with injury to left hip. TECHNIQUE: 3 views of the pelvis and hip. COMPARISON: 07/22/2016. FINDINGS: No fractures or dislocations of the left hip or pelvis. Normal left hip joint space width. No left hip joint effusion. Normal sacroiliac joints and symphysis pubis. Intrauterine device noted in the pelvic region. RAD/HIP, UNI W/ Pelvis 2-3 Views IMPRESSION: 1. Normal x-ray examination of the pelvis and hip. 2. No fractures or dislocations. 3. No left hip joint effusion. Electronically Signed: Aman Arredondo MD at 17:00 EDT ,
[2022-04-24 17:47] VITALS: BP 145/71; PULSE 74; RESP 16; O2SAT 98
== END 2022-04-24 17:48 | disposition home or self-care (01) ==
PROVIDERS: Emergency Provider Emergency Medicine; Visit Provider Emergency Medicine
DX: S79.912A Unspecified injury of left hip, initial encounter (principal); W06.XXXA Fall from bed, initial encounter; F17.210 Nicotine dependence, cigarettes, uncomplicated
CPT/HCPCS: 73502; 99283

== ENCOUNTER 2022-06-21 13:44 | Outpatient (RCR) | payer OTHER, SELFPAY ==
--- NOTE | 2022-06-21 14:47 | HP.PTEVAL ---
Patient's Visit Information SHELLEY HANSON is a 37 year old F referred to Physical Therapy by [facility] with a diagnosis of Lumbar Pain. Date of Evaluation: 06/21/22 Physical Therapist: aJhaira Barnes DPT - Visit Plan Frequency: 1x/Week Duration: 1 Week Plan: HEP for core strength. HEP Given IE: TA contraction, bridge, SKTC, clams, piriformis stretch- lifting mechanics - Subjective Patient reports that she is an [employer] and a pt was sliding out of bed and she tried to stop her and she kept sliding. Patient reports that she has lumbar pain. It still hurts at times but is much better. She feels that she is 90% back to normal. She has pain in the lumbar spine along the belt line- on bad days it comes around to the front. It is tolerable and if she sits and relaxes its much better. Worst: 4/10 Agg: lifting super heavy stuff, carrying laundry. Best: 0/10 Eases: stretching, Ibuprofen. Describes the pain as dull and achy- almost like a muscle cramp. No radiating pain- very rarely she has N/T in the left LE. As soon as she gets up and moves it usually goes away. Sleep: not disturbed. She has had chiropractor for alignments before- she is due for one- she sees him as needed. Right hand dominate. 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 She is back to work without issues doing her job. She feels that she just wants exercises and not do formal therapy. PMHx/Meds: no changes since saw [facility]. - Objective Posture: good throughout. Gait: no deviation noted. HR/TR: able. SLS: 30 sec without LOB. Reflex: WNL. ROM: Lumbar: rotation left reports pain is WFL, Flexion: hands to mid ricks report hamstring discomfort, Extn: WFL report pain at end range, all other motions WLF in lumbar and LE. Strength: Core: fair, Hip: 4+/5, Knee:5/5, Ankle: 5/5. Flex: HS: moderate, Gastroc: moderate. Palpation: tender along greater troch on the left and the paraspinals of the lumbar spine - Special Tests L/S Slump test left side: Negative L/S Slump test right side: Negative L/S Left Straight Leg Raise: Negative L/S Right Straight Leg Raise: Negative L Hip Scour: Negative L Hip MORALES - Intraarticular Pathology: Negative L Hip FADDIR - Labrum: Negative L Hip Trendelenberg - Glut Medius: Negative - Balance/Special Test Scores Lower Extremity Functional Score: 75 - Goals Goal 1:: Patient will be I with HEP and progression Goal Time Frame: 4-6 Weeks - Rehabilitation Potential Physical Therapy Diagnosis: Patient presents with hypomobility- she has decreased core strength/stabilization- affecting her lifting mechanics Rehabilitation Potential: Good - Anticipated Interventions Thank you for the opportunity to evaluate your patient. For Medicare and Medicare HMO plans, please review the plan of care and approve it. It will need to be FAXED BACK to us at [phone] for Medicare purposes. For Medicare only, by signing this I certify the plan of care. Please let me know if there are questions or concerns regarding this plan of care. Physician Signature: Date:
--- NOTE | 2022-07-20 06:55 | HP.PT.NRP ---
SHELLEY HANSON was seen in my office for initial evaluation on 06/21/22. The following Plan of Care was established for this patient: Initial Frequency: 1x/Week Initial Duration: 1 Week This patient was last seen in our office . Pertinent comments regarding their Physical therapy will appear below: Patient has not attended physical therapy in over 30 days- appropriate to be discharged and return to the MD as needed. At this point I will be discontinuing this patient from physical therapy. I would be happy to see this patient again in the future if found appropriate by the physician. Thank you! Jahaira Barnes DPT Balance/Gait/Functional tests - Balance/Special Test Scores Lower Extremity Functional Score: 75
== END 2022-06-21 19:00 | disposition home or self-care (01) ==
LOC: PT 13:44
PROVIDERS: Referring Provider Physician Assistant; Visit Provider Physician Assistant
DX: S76.212D Strain of adductor muscle, fascia and tendon of left thigh, subsequent encounter (principal)
CPT/HCPCS: 97110; 97162

== ENCOUNTER 2022-07-24 12:43 | Outpatient (RCR) | payer OTHER, SELFPAY | END 2022-07-24 12:45 | disposition home or self-care (01) | LOC: PT 12:43 | PROVIDERS: Visit Provider Physician Assistant | DX: R69 Illness, unspecified (principal) ==

== ENCOUNTER → 2022-10-06 | Outpatient (CLI) | payer OTHER, MEDICAID, SELFPAY ==
--- NOTE | 2022-10-06 07:17 | MRI_ITS ---
STUDY: MRI RIGHT SHOULDER REASON FOR EXAM: Female, 37 years old. PAIN, SPRAIN, IMPINGEMENT TECHNIQUE: Standardized fat and water weighted pulse sequences were obtained in all 3 orthogonal planes. COMPARISON: None. FINDINGS: Normal supraspinatus tendon. There is infraspinatus tendinosis with tendon thickening, but without a demonstrated tendon tear. Normal subscapularis tendon. Normal teres minor tendon. Normal supraspinatus muscle. Normal infraspinatus muscle. Normal subscapularis muscle. Normal teres minor muscle. Normal glenohumeral articulation. There is small joint effusion. There is marrow edema and cystic change of the lateral humeral head. Normal biceps labral complex. Normal intracapsular long biceps tendon. Normal labrum. Normal capsulo- ligamentous complex. Normal rotator interval. Normal acromioclavicular articulation. There is a Type II morphology (curved) acromion, with a neutral orientation. There is no subacromial-subdeltoid bursal fluid. Normal visualized coracohumeral and coracoacromial ligaments. Normal quadrilateral space. Normal axillary space. Normal deltoid muscle. Normal trapezius muscle. MRI/Upper Ext Joint Only(Routine) IMPRESSION: Tendinosis of the infraspinatus. No full-thickness rotator cuff tear. Electronically Signed: Mynor Correa MD at 9:16 [facility] ,
== END | disposition home or self-care (01) ==
PROVIDERS: Referring Provider Physician Assistant; Visit Provider Physician Assistant
DX: M75.41 Impingement syndrome of right shoulder (principal); M25.511 Pain in right shoulder; S43.491A Other sprain of right shoulder joint, initial encounter
CPT/HCPCS: 73221

== ENCOUNTER → 2022-10-24 | Outpatient (CLI) | payer OTHER, MEDICAID, SELFPAY ==
--- NOTE | 2022-10-24 17:54 | MRI_ITS ---
STUDY: MRI CERVICAL SPINE WITHOUT CONTRAST REASON FOR EXAM: Female, 37 years old. RADICULOPATHY, CERVICAL REGION TECHNIQUE: Standardized fat and water weighted pulse sequences were obtained in the sagittal and axial planes. COMPARISON: CT the cervical spine November 15, 2020 FINDINGS: Normal foramen magnum and brainstem-cervical cord junction. Normal craniovertebral junction. Normal anterior atlantoaxial articulation. Normal odontoid process. Normal cervical lordosis. Normal vertebral bodies and posterior osseous elements. C2-3: Normal endplates. Normal disc height, signal and morphology. Normal central canal and intervertebral neural foramina. C3-4: Normal endplates. Normal disc height, signal and morphology. Normal central canal and intervertebral neural foramina. C4-5 grade 1 spondylolisthesis: Normal endplates. Normal disc height, signal and minimal bulging disc osteophyte complex. Normal central canal. Moderate left neural foraminal encroachment secondary to bony hypertrophy. C5-6: Normal endplates. Normal disc height, signal and morphology. Normal central canal and intervertebral neural foramina. C6-7: Normal endplates. Normal disc height, signal and morphology. Normal central canal and intervertebral neural foramina. C7-T1: Normal endplates. Normal disc height, signal and morphology. Normal central canal and intervertebral neural foramina. Normal cervical cord. Normal visualized soft tissue structures. No significant change since prior study MRI/Spine Cervical (Routine) IMPRESSION: No evidence for acute fracture or other significant bony pathology.. Left neural foraminal stenosis at C4-5 secondary to bony hypertrophy. Electronically Signed: Terence Hoover MD at 19:26 EST ,
== END | disposition home or self-care (01) ==
PROVIDERS: Referring Provider Physician Assistant; Visit Provider Physician Assistant
DX: M54.12 Radiculopathy, cervical region (principal)
CPT/HCPCS: 72141

== ENCOUNTER → 2022-12-06 | Outpatient (CLI) | payer OTHER, MEDICAID, SELFPAY ==
--- NOTE | 2022-12-06 13:04 | NEURO ---
NCS and/or EMG Patient Report Ordering Doctor: Terence Barba DATE OF SERVICE: 12/06/22 Jossy presents for electrodiagnostic testing of the right upper limb. She reports neck pain radiating into the right arm. She reports numbness and tingling in the right hand. Electrodiagnostic findings: Right median motor nerve demonstrates normal distal latency, amplitude and conduction velocity. Normal right ulnar motor response, including conduction across the elbow. Normal right median and ulnar F-wave. Sensory responses are within normal limits. On needle EMG, all muscles tested in the right upper limb, as well as the right cervical paraspinals, showed no evidence of denervation with normal motor unit action potentials. Electrodiagnostic impression: This is a normal electrodiagnostic study of the right upper limb. There is no electrodiagnostic evidence for peripheral neuropathy, including carpal tunnel or cubital tunnel syndrome. There is no electrodiagnostic evidence for cervical radiculopathy.
== END | disposition home or self-care (01) ==
LOC: PSN 09:54
PROVIDERS: Visit Provider Orthopaedic Surgery
DX: M50.321 Other cervical disc degeneration at C4-C5 level (principal)
CPT/HCPCS: 95886; 95910